=== PATIENT | male | born 1950 | race Caucasian/White ===

== ENCOUNTER 2021-09-10 17:56 | Outpatient (CLI) | payer MEDICARE | END 2021-09-10 17:57 | disposition critical access hospital (66) | LOC: EMS 17:56 | DX: R45.89 Other symptoms and signs involving emotional state (principal); F31.9 Bipolar disorder, unspecified | CPT/HCPCS: A0425; A0429 ==

== ENCOUNTER 2021-09-10 18:12 | Emergency (ER) | payer MEDICARE ==
[2021-09-10 18:23] VITALS: BP 110/61
--- NOTE | 2021-09-10 18:33 | ED Physician Documentation ---
History of Present Illness - Stated complaint Stated Complaint: MHE - Chief complaint Chief Complaint: MHE - Additonal information Additional information: 71-year-old male who has a longstanding history of Parkinson's presents to the emergency department for a mental health evaluation. He reports to this provider that he moved from [place] to [facility] about 2 weeks ago. He has not yet been able to establish with a primary provider. Here in the emergency department he is tearful and does appear intoxicated. 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 He is tearful. He states that he is fearful he is entered the latter stages of Parkinson's. He does report compliance with all of his medications. He states occasionally he has hallucinations (sees people behind him but this has been getting worse). He denies thoughts of harm to himself or others. He expresses difficulty establishing care here [place] the [place]: I have spoken with the patient's at the bedside. She reports that she is very familiar with his routine care. 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 She felt that this was simply an off day but EMS advised her to come to the ER for him to obtain a psychiatric evaluation and/or social work referral. She states that she had not been told that she would not have felt the need to bring him to the hospital. Review of Systems Constitutional: denies: Fever, Chills Eyes: reports: Reviewed and negative Throat: reports: Reviewed and negative Cardiac: reports: Reviewed and negative Respiratory: reports: Reviewed and negative GI: reports: Reviewed and negative : reports: Reviewed and negative Skin: reports: Reviewed and negative Neurologic: reports: Generalized weakness. denies: Numbness, Difficulty s peaking, Headache, Head injury Psychiatric: reports: Depressed, Hallucinations, Anxiety. denies: Suicidal, Homicidal PD PAST MEDICAL HISTORY - Present Medications Home Medications: Ambulatory Orders Medication Instructions Recorded Confirmed Atorvastatin Calcium 40 mg PO 09/10/21 Carbidopa/Levodopa/Entacapone 1 each PO 09/10/21 [Hddipvjli-Xqkrufza-Tdvy 200 mg] Divalproex Sodium [Depakote ER] 500 mg PO 09/10/21 Gabapentin [Neurontin] 100 mg PO TID 09/10/21 09/10/21 Mirabegron [Myrbetriq] 50 mg PO 09/10/21 OLANZapine [Olanzapine] 10 mg PO 09/10/21 Pimavanserin Tartrate [Nuplazid] 34 mg PO 09/10/21 Pramipexole Di-HCl [Mirapex] 1 mg PO 09/10/21 Sildenafil Citrate [Sildenafil] 20 mg PO 09/10/21 Silodosin [Rapaflo] 8 mg PO 09/10/21 lamoTRIgine [Lamictal Xr] 100 mg PO 09/10/21 - Allergies Allergies/Adverse Reactions: Allergies Allergy/AdvReac Type Severity Reaction Status Date / Time No Known Drug Allergies Allergy Verified 09/10/21 18:19 PD ED PE EXPANDED - General General: Alert, Other (Tearful, anxious, glassy eyed) - Cardiac Cardiac: Regular Rate, Radial strong equal, Cap refill < 2 sec. No: Murmur Present - Respiratory Respiratory: Clear to ausultation wesley. No: Distress, Labored - Abdomen Abdomen: Normal Bowel sounds. No: Tender to palpation - Derm Derm: Normal color, Warm and dry. No: Rash - Extremities Extremities: Normal, Deformity - Neuro Neuro: Alert and Oriented X 3, CNII-XII intact - GCS Eye Opening: Spontaneous Motor: Obeys Commands Verbal: Oriented Total: 15 Results - Vitals Vitals: Vital Signs - 24 hr 09/10/21 09/10/21 18:19 18:22 Temperature 36.5 C 36.5 C Heart Rate 70 70 Respiratory 16 16 Rate Blood Pressure 110/61 110/61 O2 Saturation 96 96 Oxygen O2 Source Room air - Labs Labs: Laboratory Tests 09/10/21 09/10/21 09/10/21 18:39 18:39 18:39 WBC 9.0 RBC 4.04 L Hgb 13.1 L Hct 39.5 L MCV 97.8 H MCH 32.4 H MCHC 33.2 RDW 14.0 Plt Count 194 MPV 9.1 Neut # (Auto) 7.1 H Lymph # (Auto) 1.1 L Rapides # (Auto) 0.5 Eos # (Auto) 0.2 Baso # (Auto) 0.0 Absolute Nucleated RBC 0.00 Nucleated RBC % 0.0 Sodium 137 Potassium 4.0 Chloride 102 Carbon Dioxide 25 Anion Gap 10.0 BUN 20 Creatinine 0.8 Estimated GFR (MDRD) 96 Glucose 100 Calcium 9.0 Total Bilirubin 0.6 AST 18 ALT < 10 L Alkaline Phosphatase 80 Total Protein 6.5 L Albumin 3.6 Globulin 2.9 Albumin/Globulin Ratio 1.2 Lipase 24 TSH 2.07 Urine Color Urine Clarity Urine pH Ur Specific [place] Urine Protein Urine Glucose (UA) Urine Ketones Urine Occult Blood Urine Nitrite Urine Bilirubin Urine Urobilinogen Ur Leukocyte Esterase Ur Microscopic Review Urine Culture Comments Salicylates < 6.0 Urine Opiates Screen Ur Oxycodone Screen Urine Methadone Screen Ur Propoxyphene Screen Acetaminophen < 10 L Ur Barbiturates Screen Ur Tricyclics Screen Ur Phencyclidine Scrn Ur Amphetamine Screen U Methamphetamines Scrn U Benzodiazepines Scrn Urine Cocaine Screen U Cannabinoids Screen Ethyl Alcohol < 5.0 09/10/21 20:04 WBC RBC Hgb Hct MCV MCH MCHC RDW Plt Count MPV Neut # (Auto) Lymph # (Auto) Rapides # (Auto) Eos # (Auto) Baso # (Auto) Absolute Nucleated RBC Nucleated RBC % Sodium Potassium Chloride Carbon Dioxide Anion Gap BUN Creatinine Estimated GFR (MDRD) Glucose Calcium Total Bilirubin AST ALT Alkaline Phosphatase Total Protein Albumin Globulin Albumin/Globulin Ratio Lipase TSH Urine Color YELLOW Urine Clarity CLEAR Urine pH 6.0 Ur Specific [place] >=1.030 H Urine Protein NEGATIVE Urine Glucose (UA) NEGATIVE Urine Ketones 15 H Urine Occult Blood NEGATIVE Urine Nitrite NEGATIVE Urine Bilirubin NEGATIVE Urine Urobilinogen 0.2 (NORMAL) Ur Leukocyte Esterase NEGATIVE Ur Microscopic Review NOT INDICATED Urine Culture Comments NOT INDICATED Salicylates Urine Opiates Screen NEGATIVE Ur Oxycodone Screen NEGATIVE Urine Methadone Screen NEGATIVE Ur Propoxyphene Screen NEGATIVE Acetaminophen Ur Barbiturates Screen NEGATIVE Ur Tricyclics Screen NEGATIVE Ur Phencyclidine Scrn NEGATIVE Ur Amphetamine Screen NEGATIVE U Methamphetamines Scrn NEGATIVE U Benzodiazepines Scrn NEGATIVE Urine Cocaine Screen NEGATIVE U Cannabinoids Screen NEGATIVE Ethyl Alcohol PD MEDICAL DECISION MAKING - ED course Complexity details: reviewed results, re-evaluated patient, considered differential, d/w patient, d/w family ED course: 71-year-old male who has a history of Parkinson's as well as Parkinson's related dementia presents to the emergency department for evaluation of depression. He is fearful that he is in the entering the advanced stages of Parkinson. [place] ago [place] and has yet to establish a formal residence and/or a primary care doctor. He did admit to drinking alcohol over the last 24 hours when he had been sober for 21 years. However his drug alcohol screen today was negative. I did spend some time with the at the bedside. She endorses that she feels that this is just a bad day for him and had she not been advised to come to the ER via EMS she would not have brought him in. Screening labs are without acute worrisome findings or electrolyte derangement. A CT of the head is without acute focal findings. I do not feel that the patient is a danger to himself as he easily contracts for safety. I discussed with that is going to be important that he establish with a primary care provider here in [facility] so that he can have his routine meds prescribed as well as obtain to referral to a neuropsychiatrist/neurologist given the dementia and Parkinson's. I did offer tele-psych evaluation, but she declined. She does feel comfortable with his discharge at this time. 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 He is fearful that he is entering the advanced stages of Parkinson's and he may be, but this si for a neurologist to determine. It is going to be important that you call [facility] tomorrow to discuss this ED visit and request referral to a primary care provider as soon as possible. It is going to be important that Hayden get established with a primary doctor as well as a neurologist for longer-term management of his Parkinson's and Parkinson's related behaviors. His screening labs today including his blood count, serum chemistry are all essentially normal. The CT of the head did not show any obvious concerning findings. We do note that the deep brain stimulator wires are in place. If at any point you ever feel that Hayden is unsafe at home, he is threatening to harm himself or anybody else then please do not hesitate to call 911 or return immediately to the ER for repeat evaluation.
[2021-09-10 18:48] LABS: BASOPHILS % (AUTO) 0.3 %; EOSINOPHILS # (AUTO) 0.2 10^3/uL (0.0-0.7); EOSINOPHILS % (AUTO) 2.7 %; HCT - HEMATOCRIT 39.5 % (42.0-52.0); HGB - HEMOGLOBIN 13.1 g/dL (14.0-18.0); LYMPHOCYTES # (AUTO) 1.1 10^3/uL (1.5-3.5); LYMPHOCYTES % (AUTO) 12.5 %; MEAN CORPUSCULAR HEMOGLOBIN 32.4 pg (27.0-31.0); MEAN CORPUSCULAR HGB CONC 33.2 g/dL (32.0-36.0); MEAN CORPUSCULAR VOLUME 97.8 fL (80.0-94.0); MEAN PLATELET VOLUME 9.1 fL (7.4-11.4); MONOCYTES # (AUTO) 0.5 10^3/uL (0.0-1.0); MONOCYTES % (AUTO) 5.2 %; NEUTROPHILS # (AUTO) 7.1 10^3/uL (1.5-6.6); PLT - PLATELET COUNT 194 10^3/uL (130-450); RED BLOOD COUNT 4.04 10^6/uL (4.70-6.10)
[2021-09-10 19:07] LABS: ACETAMINOPHEN < 10 ug/mL (10-30); ALBUMIN 3.6 g/dL (3.2-5.5); ALBUMIN/GLOBULIN RATIO 1.2 (1.0-2.2); ALKALINE PHOSPHATASE 80 IU/L (42-121); ALT ALANINE AMINOTRANSFERASE < 10 IU/L (10-60); AST ASPARTATE AMINOTRANSFERASE 18 IU/L (10-42); BILIRUBIN,TOTAL 0.6 mg/dL (0.2-1.0); BUN - BLOOD UREA NITROGEN 20 mg/dL (6-20); CARBON DIOXIDE - CO2 25 mmol/L (21-32); CHLORIDE 102 mmol/L (101-111); CREATININE 0.8 mg/dL (0.6-1.2); ETOH - ETHANOL < 5.0 mg/dL; GFR - MDRD 96 (>89); GLUCOSE 100 mg/dL (70-100); LIPASE 24 U/L (22-51); SALICYLATE < 6.0 mg/dL; SODIUM 137 mmol/L (135-145); TOTAL PROTEIN 6.5 g/dL (6.7-8.2)
[2021-09-10 20:11] LABS: MUDS CUTOFF CONCENTRATIONS CUTOFF CONC BELOW:
[2021-09-10 20:13] LABS: BILIRUBIN,URINE NEGATIVE (NEGATIVE); GLUCOSE, URINE (UA) NEGATIVE (NEGATIVE); KETONES,URINE (UA) 15 mg/dL (NEGATIVE); LEUKOCYTE ESTERASE, URINE NEGATIVE (NEGATIVE); NITRITE,URINE NEGATIVE (NEGATIVE); OCCULT BLOOD,URINE NEGATIVE (NEGATIVE); PROTEIN,URINE NEGATIVE (NEGATIVE); UROBILINOGEN,URINE 0.2 (NORMAL) E.U./dL (NORMAL)
[2021-09-10 20:17] LABS: CLARITY,URINE CLEAR (CLEAR)
[2021-09-10 20:26] LABS: AMPHETAMINE SCREEN,URINE NEGATIVE (NEGATIVE); BARBITURATE SCREEN,UR NEGATIVE (NEGATIVE); BENZODIAZEPINES SCREEN, URINE NEGATIVE (NEGATIVE); COCAINE SCREEN URINE NEGATIVE (NEGATIVE); METHADONE SCREEN, URINE NEGATIVE (NEGATIVE); METHAMPHETAMINES SCREEN, URINE NEGATIVE (NEGATIVE); OPIATE SCREEN, URINE NEGATIVE (NEGATIVE); OXYCODONE SCREEN, URINE NEGATIVE (NEGATIVE); PROPOXYPHENE SCREEN, URINE NEGATIVE (NEGATIVE); THC CANNABINOID SCREEN, URINE NEGATIVE (NEGATIVE); TRICYCLIC ANTIDEPRESSANT,URINE NEGATIVE (NEGATIVE)
--- NOTE | 2021-09-10 20:41 | CT Report ---
PROCEDURE: HEAD WO INDICATIONS: delusions; hx of parkinsons TECHNIQUE: Noncontrast 4.5 mm thick angled axial sections acquired from the foramen magnum to the vertex. For r adiation dose reduction, the following was used: automated exposure control, adjustment of mA and/or kV according to patient size. COMPARISON: None. FINDINGS: Image quality: Excellent. CSF spaces: Basal cisterns are patent. No extra-axial fluid collections. Ventricles are normal in size and shape. Brain: No stimulators project to the bilateral thalami the right frontal approach. Stimulator leads a re intact. No midline shift. No intracranial masses or hemorrhage. Pritchard-white matter interface is n ormal. There is mild, diffuse cerebral volume loss. There are mild periventricular and subcortical wh ite matter chronic microvascular ischemic changes. Atherosclerotic calcific lesions noted in the inte rnal carotid arteries and the left vertebral artery. Skull and face: Calvarium and visualized facial bones are intact, without suspicious lesions. Sinuses: Visualized sinuses and mastoids are clear. IMPRESSION: No acute intracranial disease process. Reviewed by: Piedad Perez MD, PhD on 09/10/2021 8:39 PM PDT Approved by: Piedad Perez MD, PhD on 09/10/2021 8:39 PM PDT Station ID: [id number]
== END 2021-09-10 21:17 | disposition home or self-care (01) ==
LOC: ED 18:12
DX: G20 Parkinson's disease (principal); F32.89 Other specified depressive episodes
CPT/HCPCS: 36415; 70450; 80053; 80306; 80307; 81003; 83690; 84443; 85025; 99283; 99284; G0480; 80320; 80329; 81001; 87086

== ENCOUNTER 2021-09-29 18:34 | Emergency (ER) | payer MEDICARE ==
--- NOTE | 2021-09-29 20:14 | ED Physician Documentation ---
History of Present Illness - Stated complaint Stated Complaint: MED REFILL/COUGH - Chief complaint Chief Complaint: General - History obtained from History obtained from: Patient, Family - History of Present Illness Timing: Today Pain level max: 0 Pain level now: 0 - Additonal information Additional information: Patient is a 71-year-old male who comes in to the emergency department with a history of Parkinson's dementia. He is accompanied by his . They recently moved here from [place], they state that their medications are stuck in a transport container in [place] and they are unable to obtain any refills. They are also having insurance issues. Requesting refill of his medications. They did bring the bottles with them. Patient also states that he has a small abscess under the left axilla for the past few days. No fevers. No chills. Nothing makes it better or worse Review of Systems Constitutional: denies: Fever, Chills GI: denies: Nausea, Vomiting Skin: denies: Rash Musculoskeletal: denies: Neck pain, Back pain Neurologic: denies: Headache PD PAST MEDICAL HISTORY - Past Medical History Past Medical History: Yes Cardiovascular: High cholesterol Neuro: Dementia, Parkinson's - Past Surgical History Past Surgical History: Yes Neuro: Other - Present Medications Home Medications: Ambulatory Orders Medication Instructions Recorded Confirmed Atorvastatin Calcium 40 mg PO QPM 09/10/21 09/29/21 Carbidopa/Levodopa/Entacapone 1 each PO QID 09/10/21 09/29/21 [Endtwvsas-Jjldqilo-Myyd 200 mg] Divalproex Sodium [Depakote ER] 500 mg PO DAILY 09/10/21 09/29/21 Gabapentin [Neurontin] 100 mg PO TID 09/10/21 09/29/21 Sildenafil Citrate [Sildenafil] 20 mg PO DAILY 09/10/21 09/29/21 Carbidopa/Levodopa ER 50/200 1 tab PO HS #390 tablet 09/29/21 [Sinemet Cr 50 mg/200 mg] Divalproex Sodium [Depakote ER] 1,000 mg PO QPM #60 09/29/21 Mirabegron [Myrbetriq] 50 mg PO DAILY #30 tab 09/29/21 OLANZapine [Olanzapine] 10 mg PO DAILY #30 tab 09/29/21 Pimavanserin Tartrate [Nuplazid] 34 mg PO DAILY #30 cap 09/29/21 Pramipexole Di-HCl [Mirapex] 1 mg PO DAILY #30 tab 09/29/21 Silodosin [Rapaflo] 8 mg PO DAILY #30 cap 09/29/21 clindamycin HCL [Cleocin HCl] 300 mg PO Q6H #40 cap 09/29/21 lamoTRIgine [Lamictal Xr] 100 mg PO DAILY #30 tab 09/29/21 - Allergies Allergies/Adverse Reactions: Allergies Allergy/AdvReac Type Severity Reaction Status Date / Time No Known Drug Allergies Allergy Verified 09/29/21 18:47 - Social History Does the pt smoke?: No Smoking Status: Never smoker Does the pt drink ETOH?: No Does the pt have substance abuse?: No - Immunizations Immunizations are current?: Yes PD ED PE NORMAL - Vitals Vital signs reviewed: Yes - General General: Alert and oriented X 3, No acute distress - HEENT HEENT: Moist mucous membranes - Neck Neck: Supple, no meningeal sign - Cardiac Cardiac: RRR - Respiratory Respiratory: No respiratory distress, Clear bilaterally - Abdomen Abdomen: Soft, Non tender, Non distended - Derm Derm: Warm and dry - Extremities Extremities: Other (0.2 x 0.2 cm abscess to the left axilla. No fluctuance.) - Neuro Neuro: Alert and oriented X 3 - Psych Psych: Normal mood, Normal affect Results - Vitals Vitals: Vital Signs - 24 hr 09/29/21 09/29/21 18:50 20:52 Temperature 36.4 C L 36.5 C Heart Rate 76 75 Respiratory 18 18 Rate Blood Pressure 131/65 H 130/64 O2 Saturation 99 99 Oxygen O2 Source Room air PD MEDICAL DECISION MAKING - ED course Complexity details: considered differential, d/w patient, d/w family ED course: Patient with a very small left axillary abscess. Does not require incision and drainage. Will place on antibiotics for this. Medications will be refilled. Patient will be referred to the primary care clinic on-call for follow-up for the ER this week for further management of his medications until he can establish care with a new primary care provider. Patient and family counseled regarding signs and symptoms for which I believe and urgent re-evaluation would be necessary. Patient with good understanding of and agreement to plan and is comfortable going home at this time This document was made in part using voice recognition software. While efforts are made to proofread this document, sound alike and grammatical errors may occur. Departure - Departure Disposition: 01 Home, Self Care Clinical Impression: Abscess, Dementia associated with Parkinson's disease Condition: Stable Instructions: ED Staph Infec Abx Tx Only Follow-Up: Lucy Dickson PA-C [Physician No Access] - [facility] [Provider Group] - Within 1 week Prescriptions: clindamycin HCL [Cleocin HCl] 300 mg PO Q6H #40 cap Divalproex Sodium [Depakote ER] 1,000 mg PO QPM #60 lamoTRIgine [Lamictal Xr] 100 mg PO DAILY #30 tab Pramipexole Di-HCl [Mirapex] 1 mg PO DAILY #30 tab Mirabegron [Myrbetriq] 50 mg PO DAILY #30 tab Pimavanserin Tartrate [Nuplazid] 34 mg PO DAILY #30 cap OLANZapine [Olanzapine] 10 mg PO DAILY #30 tab Silodosin [Rapaflo] 8 mg PO DAILY #30 cap Carbidopa/Levodopa ER 50/200 [Sinemet Cr 50 mg/200 mg] 1 tab PO HS #390 tablet Comments: Your prescriptions were sent to [facility] in [place]. Please follow-up with your primary care provider for further care. Take all antibiotics until gone. Return if you worsen. Discharge Date/Time: 09/29/21 20:53
[2021-09-29 20:53] VITALS: BP 130/64
== END 2021-09-29 20:53 | disposition home or self-care (01) ==
LOC: ED 18:34
DX: Z76.0 Encounter for issue of repeat prescription (principal); L02.412 Cutaneous abscess of left axilla; G20 Parkinson's disease; F02.80 Dementia in other diseases classified elsewhere, unspecified severity, without behavioral disturbance, psychotic disturbance, mood disturbance, and anxiety
CPT/HCPCS: 99283; 99285

== ENCOUNTER 2021-12-01 21:20 | Observation (INO) | payer MEDICARE ==
[2021-12-02] MEDS ORDERED: LIDOCAINE PATCH 5% TOP ONE (02:28)
[2021-12-02] MEDS ORDERED: ONDANSETRON ODT 4 MG TABLET TL PRN (15:20)
[2021-12-02] MEDS ORDERED: SODIUM CHLORIDE FLUSH 0.9% 10 ML SYRINGE IVP PRN (16:00)
[2021-12-02] MEDS ORDERED: LACTATED RINGERS 1,000 ML ONE (16:28)
[2021-12-02] MEDS: LACTATED RINGERS 1,000 ML IV SCH (18:22)
[2021-12-02 18:34] LABS: MUDS CUTOFF CONCENTRATIONS CUTOFF CONC BELOW:
[2021-12-02 19:00] LABS: VALPROIC ACID (DEPAKOTE) 71.6 ug/mL
[2021-12-02 19:06] LABS: ALBUMIN 3.8 g/dL (3.2-5.5); ALBUMIN/GLOBULIN RATIO 1.3 (1.0-2.2); ALKALINE PHOSPHATASE 90 IU/L (42-121); ALT ALANINE AMINOTRANSFERASE < 10 IU/L (10-60); AST ASPARTATE AMINOTRANSFERASE 18 IU/L (10-42); BILIRUBIN,TOTAL 0.8 mg/dL (0.2-1.0); BUN - BLOOD UREA NITROGEN 21 mg/dL (6-20); CALCIUM 9.6 mg/dL (8.5-10.3); CARBON DIOXIDE - CO2 28 mmol/L (21-32); CHLORIDE 105 mmol/L (101-111); CREATININE 0.9 mg/dL (0.6-1.2); GFR - MDRD 84 (>89); GLUCOSE 86 mg/dL (70-100); LIPASE 24 U/L (22-51); POTASSIUM 3.7 mmol/L (3.5-5.0); SODIUM 142 mmol/L (135-145); TOTAL PROTEIN 6.8 g/dL (6.7-8.2)
[2021-12-02 19:16] LABS: BASOPHILS % (AUTO) 0.5 %; EOSINOPHILS # (AUTO) 0.1 10^3/uL (0.0-0.7); HCT - HEMATOCRIT 39.7 % (42.0-52.0); HGB - HEMOGLOBIN 13.1 g/dL (14.0-18.0); LYMPHOCYTES # (AUTO) 1.4 10^3/uL (1.5-3.5); LYMPHOCYTES % (AUTO) 25.3 %; MEAN CORPUSCULAR HEMOGLOBIN 32.4 pg (27.0-31.0); MEAN CORPUSCULAR VOLUME 98.3 fL (80.0-94.0); MEAN PLATELET VOLUME 10.1 fL (7.4-11.4); MONOCYTES # (AUTO) 0.5 10^3/uL (0.0-1.0); MONOCYTES % (AUTO) 9.1 %; NEUTROPHILS # (AUTO) 3.5 10^3/uL (1.5-6.6); NEUTROPHILS % (AUTO) 62.7 %; PLT - PLATELET COUNT 187 10^3/uL (130-450); RED BLOOD COUNT 4.04 10^6/uL (4.70-6.10); RED CELL DISTRIBUTION WIDTH 14.1 % (12.0-15.0); WHITE BLOOD COUNT 5.5 x10^3/uL (4.8-10.8)
[2021-12-02 19:23] LABS: BILIRUBIN,URINE NEGATIVE (NEGATIVE); GLUCOSE, URINE (UA) NEGATIVE (NEGATIVE); KETONES,URINE (UA) 15 mg/dL (NEGATIVE); LEUKOCYTE ESTERASE, URINE NEGATIVE (NEGATIVE); NITRITE,URINE NEGATIVE (NEGATIVE); OCCULT BLOOD,URINE NEGATIVE (NEGATIVE); PROTEIN,URINE NEGATIVE (NEGATIVE); UROBILINOGEN,URINE 0.2 (NORMAL) E.U./dL (NORMAL)
[2021-12-02 19:24] LABS: CLARITY,URINE CLEAR (CLEAR)
[2021-12-02 19:25] LABS: AMPHETAMINE SCREEN,URINE NEGATIVE (NEGATIVE); BARBITURATE SCREEN,UR NEGATIVE (NEGATIVE); BENZODIAZEPINES SCREEN, URINE NEGATIVE (NEGATIVE); COCAINE SCREEN URINE NEGATIVE (NEGATIVE); METHADONE SCREEN, URINE NEGATIVE (NEGATIVE); METHAMPHETAMINES SCREEN, URINE NEGATIVE (NEGATIVE); OPIATE SCREEN, URINE NEGATIVE (NEGATIVE); OXYCODONE SCREEN, URINE NEGATIVE (NEGATIVE); PROPOXYPHENE SCREEN, URINE NEGATIVE (NEGATIVE); THC CANNABINOID SCREEN, URINE NEGATIVE (NEGATIVE); TRICYCLIC ANTIDEPRESSANT,URINE NEGATIVE (NEGATIVE)
[2021-12-02] MEDS ORDERED: DIVALPROEX ER 250 MG TABLET PO SCH (21:00)
[2021-12-02] MEDS ORDERED: ATORVASTATIN 40 MG TABLET PO SCH (21:00)
--- NOTE | 2021-12-02 21:25 | PHARMACY PROGRESS NOTE ---
- Best Possible Medication History Admit Date and Time: 12/02/21 1430 Processed by: Pharmacy Medication History completed: Yes Patient Interview: Completed Secondary Source(s): Prescription bottles, Caregiver, Pharmacy records, Insurance records As the person ultimately responsible for medication therapy, providers are able to order a medication from an existing home medication list in [facility] via the "Reconcile Routine" prior to Confirmation of that medication by senior administrative support. Such practice is discouraged except when the physician, in their clinical judgment, deems that a medical need exists for a medication without regard to previous use.
[2021-12-02] MEDS: CARBIDOPA/LEVODOPA 25 MG/100 MG TABLET PO SCH (22:01)
[2021-12-02] MEDS: lamoTRIgine 100 MG TABLET PO SCH (22:02)
[2021-12-02] MEDS: CARBIDOPA/LEVODOPA ER 50 MG/200 MG TABLET PO SCH (22:03)
[2021-12-02] MEDS: SODIUM CHLORIDE FLUSH 0.9% 10 ML SYRINGE IVP SCH (22:04)
[2021-12-02] MEDS ORDERED: ATORVASTATIN 40 MG TABLET ONE (22:10)
[2021-12-02] MEDS ORDERED: ASPIRIN EC 81 MG TABLET PO ONE (22:10)
[2021-12-02] MEDS ORDERED: CARBIDOPA/LEVODOPA 25 MG/100 MG TABLET ONE (22:11)
[2021-12-02] MEDS ORDERED: DIVALPROEX ER 250 MG TABLET PO ONE (22:11)
[2021-12-02] MEDS ORDERED: lamoTRIgine 100 MG TABLET PO ONE (22:11)
[2021-12-02] MEDS ORDERED: CARBIDOPA/LEVODOPA ER 50 MG/200 MG TABLET PO ONE (22:15)
[2021-12-03] MEDS: LACTATED RINGERS 1,000 ML IV SCH ×2 (01:38→11:19)
[2021-12-03] MEDS: SODIUM CHLORIDE FLUSH 0.9% 10 ML SYRINGE IVP SCH ×2 (01:39→12:18)
[2021-12-03] MEDS ORDERED: LACTATED RINGERS 1,000 ML ONE ×2 (01:47→11:28)
[2021-12-03] MEDS ORDERED: GABAPENTIN 100 MG CAPSULE PO PRN (07:31)
[2021-12-03] MEDS: CARBIDOPA/LEVODOPA 25 MG/100 MG TABLET PO SCH (08:17)
[2021-12-03] MEDS: PRAMIPEXOLE 0.25 MG TABLET PO SCH ×2 (08:17→13:54)
[2021-12-03] MEDS: CARBIDOPA/LEVODOPA ER 50 MG/200 MG TABLET PO SCH (08:18)
[2021-12-03] MEDS: lamoTRIgine 100 MG TABLET PO SCH (08:18)
[2021-12-03] MEDS ORDERED: CARBIDOPA/LEVODOPA 25 MG/100 MG TABLET ONE (08:21)
[2021-12-03] MEDS ORDERED: GABAPENTIN 100 MG CAPSULE ONE (08:21)
[2021-12-03] MEDS ORDERED: PRAMIPEXOLE 0.25 MG TABLET PO ONE ×2 (08:22→14:04)
[2021-12-03] MEDS ORDERED: lamoTRIgine 100 MG TABLET PO ONE (08:22)
[2021-12-03] MEDS ORDERED: CARBIDOPA/LEVODOPA ER 50 MG/200 MG TABLET PO ONE ×2 (08:22→12:26)
[2021-12-03] MEDS ORDERED: ENOXAPARIN 40 MG/0.4 ML SYRINGE SUBQ ONE (08:23)
[2021-12-03] MEDS ORDERED: ASPIRIN EC 81 MG TABLET PO ONE (08:31)
--- NOTE | 2021-12-03 08:50 | CT Report ---
PROCEDURE: HEAD WO INDICATIONS: AMS TECHNIQUE: Noncontrast 4.5 mm thick angled axial sections acquired from the foramen magnum to the vertex. For r adiation dose reduction, the following was used: automated exposure control, adjustment of mA and/or kV according to patient size. COMPARISON: 09/10/2021 FINDINGS: Deep brain stimulator leads redemonstrated. No acute intracranial hemorrhage, abnormal extra-axial fl uid collection, mass effect, or midline shift. The ventricular system and basilar cisterns are patent . There is mild to moderate cortical volume loss for the past expansion of the ventricles and extra-a xial spaces. Mild to moderate chronic microvascular ischemic changes. No gross orbital abnormality. C lear paranasal sinuses and mastoid air cells. IMPRESSION: No acute intracranial abnormality. Reviewed by: Soy Horta MD on 12/03/2021 8:49 AM PDT Approved by: Soy Horta MD on 12/03/2021 8:49 AM PDT Station ID: [id number]
[2021-12-03] MEDS ORDERED: SOLIFENACIN SUCCINATE 10 MG TABLET PO SCH (09:00)
[2021-12-03] MEDS ORDERED: polyethylene glycoL 3350 17 GM PACKET PO SCH (09:00)
[2021-12-03] MEDS ORDERED: GABAPENTIN 100 MG CAPSULE PO SCH (09:00)
[2021-12-03] MEDS ORDERED: ASPIRIN EC 81 MG TABLET PO SCH (09:00)
[2021-12-03] MEDS ORDERED: ENOXAPARIN 40 MG/0.4 ML SYRINGE SUBQ SCH (09:00)
[2021-12-03 09:25] LABS: CREATININE 0.8 mg/dL (0.6-1.2); POTASSIUM 3.6 mmol/L (3.5-5.0)
[2021-12-03 09:27] LABS: BASOPHILS % (AUTO) 0.7 %; EOSINOPHILS # (AUTO) 0.1 10^3/uL (0.0-0.7); EOSINOPHILS % (AUTO) 2.4 %; HCT - HEMATOCRIT 43.4 % (42.0-52.0); LYMPHOCYTES # (AUTO) 1.3 10^3/uL (1.5-3.5); LYMPHOCYTES % (AUTO) 24.4 %; MEAN CORPUSCULAR HEMOGLOBIN 31.6 pg (27.0-31.0); MEAN CORPUSCULAR HGB CONC 32.3 g/dL (32.0-36.0); MEAN PLATELET VOLUME 9.7 fL (7.4-11.4); MONOCYTES # (AUTO) 0.5 10^3/uL (0.0-1.0); MONOCYTES % (AUTO) 8.4 %; NEUTROPHILS # (AUTO) 3.5 10^3/uL (1.5-6.6); NEUTROPHILS % (AUTO) 63.7 %; PLT - PLATELET COUNT 178 10^3/uL (130-450); RED BLOOD COUNT 4.43 10^6/uL (4.70-6.10); RED CELL DISTRIBUTION WIDTH 14.2 % (12.0-15.0); WHITE BLOOD COUNT 5.5 x10^3/uL (4.8-10.8)
--- NOTE | 2021-12-03 09:29 | CT Report ---
PROCEDURE: CERVICAL SPINE WO INDICATIONS: AMS TECHNIQUE: Noncontrast 3 mm thick sections acquired from the skull base to the T4 level. Sagittal and coronal r eformats were then constructed. For radiation dose reduction, the following was used: automated exp osure control, adjustment of mA and/or kV according to patient size. COMPARISON: None. FINDINGS: Please note that within the PACS the images for this examination are located in the head CT study per formed at the same time. Normal cervical spine vertebral body height and alignment. No suspicious lytic or blastic osseous les ion. No acute fracture identified. The facet joints and intervertebral disc spaces are congruent with out evidence of subluxation or dislocation. There are [id number] multilevel multifactorial dege nerative changes worst at C6-C7. Regional soft tissues demonstrate no acute abnormality in the absenc e of IV contrast. IMPRESSION: No CT evidence of acute traumatic cervical spine injury. Reviewed by: Soy Horta MD on 12/03/2021 9:27 AM PDT Approved by: Soy Horta MD on 12/03/2021 9:27 AM PDT Station ID: [id number]
--- NOTE | 2021-12-03 10:10 | XRAY Report ---
PROCEDURE: Chest 1 View X-Ray INDICATIONS: AMS TECHNIQUE: One view of the chest was acquired. COMPARISON: None FINDINGS: Surgical changes and devices: Neurostimulator projecting over the right chest wall. Lungs and pleura: No pleural effusions or pneumothorax. Lungs are clear. Mediastinum: Mediastinal contours appear normal. Heart size is normal. Bones and chest wall: No suspicious bony lesions. Overlying soft tissues appear unremarkable. IMPRESSION: No acute cardiopulmonary disease process. Reviewed by: Piedad Perez MD, PhD on 12/03/2021 10:09 AM PDT Approved by: Piedad Perez MD, PhD on 12/03/2021 10:09 AM PDT Station ID: [id number]
--- NOTE | 2021-12-03 10:34 | DISCHARGE SUMMARY ---
"Discharge Summary Admit Date: 12/02/21 Discharge Date: 12/03/21 Discharging Provider: Ajay Mejia Primary Care Provider: Aide Moreau Code Status: Do Not Attempt Resuscitation Condition at Discharge: Stable Discharge Disposition: 01 Home, Self Care - DIAGNOSES Admission Diagnoses: Altered mental status Possible syncope Parkinson's disease Bipolar disorder Dementia Discharge Diagnoses with Status of Each Condition: Altered mental status - resolved. Possible syncope - resolved. Parkinson's disease - stable. Bipolar disorder - stable. Dementia - stable. - HPI History of Present Illness: Please see H&P. - CONSULTS | PROCEDURES Consultations: PT, OT, Social Work - HOSPITAL COURSE Hospital Course: The patient was admitted for altered mental status after a fall. There is question of syncope but after further history, it appears he just fell did not have a syncopal episode. He was monitored on telemetry with evidence of arrhythmia. The plan was to obtain an echocardiogram we were unable to do so so this is recommended to be obtained on an outpatient basis. It was felt that his altered mental status was related to polypharmacy and likely too high of a dose of olanzapine. His home medications were resumed except for the olanzapine and he did well throughout the day. The dose had recently been increased to 20 mg so we recommended decreasing this to 10 mg on discharge. He is scheduled to follow-up with a new neurologist in 3 weeks. He was seen by PT/OT and outpatient physical/occupational therapy is recommended. - ALLERGIES Allergies/Adverse Reactions: Allergies Allergy/AdvReac Type Severity Reaction Status Date / Time No Known Drug Allergies Allergy Verified 09/29/21 18:47 - MEDICATIONS Home Medications: Ambulatory Orders Medication Instructions Recorded Confirmed Atorvastatin Calcium 40 mg PO DAILY 09/10/21 12/02/21 Gabapentin [Neurontin] 200 mg PO DAILY 09/10/21 12/02/21 Sildenafil Citrate [Sildenafil] 20 mg PO PRN PRN 09/10/21 12/02/21 Divalproex Sodium [Depakote ER] 1,000 mg PO QPM #60 09/29/21 12/02/21 Mirabegron [Myrbetriq] 50 mg PO DAILY #30 tab 09/29/21 12/02/21 Aspirin EC [Ecotrin] 81 mg PO DAILY 12/02/21 12/02/21 Calcium Carbonate [Calcium] 600 mg PO QPM 12/02/21 12/02/21 Carbidopa/Levodopa 25/100 [Sinemet 1 tab PO 0800,1600,199912/02/21 12/02/21 25 mg/100 mg] Carbidopa/Levodopa ER 50/200 3 tab PO 0800,199912/02/21 12/02/21 [Sinemet Cr 50 mg/200 mg] Carbidopa/Levodopa ER 50/200 4 tab PO 1200,1600 12/02/21 12/02/21 [Sinemet Cr 50 mg/200 mg] Cholecalciferol (Vitamin D3) 50 mcg PO QPM 12/02/21 12/02/21 [Vitamin D3] Gabapentin [Neurontin] 100 mg PO 1200,2100 PRN 12/02/21 12/02/21 Ondansetron Odt [Zofran Odt] 4 mg TL Q6H PRN 12/02/21 12/02/21 Pimavanserin Tartrate [Nuplazid] 34 mg PO QPM 12/02/21 12/02/21 Pramipexole Di-HCl [Mirapex] 1 mg PO QID 12/02/21 12/02/21 Sennosides/Docusate Sodium 1 tab PO QPM 12/02/21 12/02/21 [Docusate Sodium-Sennosides Tab] Silodosin [Rapaflo] 8 mg PO QPM 12/02/21 12/02/21 clonazePAM [KlonoPIN] 1 mg PO QPM 12/02/21 12/02/21 lamoTRIgine [LaMICtal] 100 mg PO BID 12/02/21 12/02/21 OLANZapine [Olanzapine] 10 mg PO QPM #30 tablet 12/03/21 - PHYSICAL EXAM AT DISCHARGE General Appearance: positive: No acute distress, Alert Eyes Bilateral: positive: Normal inspection, Conjunctivae nml ENT: positive: ENT inspection nml Neck: positive: Nml inspection Respiratory: positive: No respiratory distress. negative: Wheezes, Rales Cardiovascular: positive: Regular rate & rhythm, No murmur, Other (Deep brain stimulator present over right chest wall). negative: Tachycardia Abdomen: positive: Non-tender, No distention. negative: Tenderness Skin: positive: Warm, Dry Extremities: positive: No pedal edema Neurologic/Psychiatric: positive: Other (3 out of 5 motor strength in the right lower extremity (chronic). 5 out of 5 motor strength in all of the other extremities). negative: Disoriented to person, Disoriented to place Physical Exam Other/Comments: Vital Signs - 24 hr 12/02/21 12/03/21 12/03/21 23:56 05:33 07:30 Temperature 36.6 C 36.6 C 36.3 C L Heart Rate [ 73 64 59 L Brachial] Heart Rate [ Supine] Respiratory 18 18 16 Rate Blood Pressure 139/67 H 118/65 117/67 [Right Brachial artery] Blood Pressure [Sitting] Blood Pressure [Standing] Blood Pressure [Supine] O2 Saturation 93 96 95 12/03/21 12/03/21 12/03/21 10:30 10:35 11:44 Temperature 36.4 C L Heart Rate [ 83 Brachial] Heart Rate [ 74 74 Supine] Respiratory 20 Rate Blood Pressure 138/78 H [Right Brachial artery] Blood Pressure 127/100 H 127/100 H [Sitting] Blood Pressure 138/78 H 138/78 H [Standing] Blood Pressure 143/73 H 143/73 H [Supine] O2 Saturation 94 12/03/21 12:50 Temperature Heart Rate [ Brachial] Heart Rate [ 74 Supine] Respiratory Rate Blood Pressure [Right Brachial artery] Blood Pressure 127/100 H [Sitting] Blood Pressure 138/78 H [Standing] Blood Pressure 143/73 H [Supine] O2 Saturation Oxygen O2 Source Room air - LABS Result Diagrams: 12/03/21 09:09 12/03/21 09:09 - DIAGNOSTIC IMAGING Diagnostic Imaging Results: Final report reviewed - FOLLOW UP Follow Up: He was encouraged to follow-up with his primary care physician within 1 to 2 weeks and to follow-up with his neurologist as scheduled in 3 weeks. - TIME SPENT Time Spent in Discharge (Minutes): 32"
--- NOTE | 2021-12-03 10:34 | Discharge Plan ---
Discharge Plan Problem Reviewed?: Yes Disposition: Home, Self Care Condition: Stable Prescriptions: OLANZapine [Olanzapine] 10 mg PO QPM #30 tablet Diet: Regular Activity Restrictions: Activity as Tolerated Assistance Devices: Walker Instruction Topics: Parkinson Disease Dc Health Concerns: You were admitted to the hospital after a fall. You are found to be a little confused and we are concerned this may have been due to your multiple medications. I believe the Zyprexa dose is too high for you and this likely contributed to you being more lethargic and weak leading to the fall. Plan of Treatment: The only change to medication is that we recommend you stop Zyprexa 20 mg in the evening and take 10 mg in the evening instead. The 20 mg is likely too high of a dose for you. Please follow-up with your neurologist as scheduled. An ultrasound of your heart can be considered on outpatient basis to make sure there is no valve disease that may have caused you to fall/pass out. Care Goals: The goal is to manage your Parkinson's and bipolar disorder while trying to reduce the side effects of medications. Assessment: The patient and family expressed understanding of the treatment plan. Additional Instructions or Follow Up instructions: Please follow-up with your neurologist as scheduled. Please follow-up with your primary care physician in 1 to 2 weeks. Your primary care physician can refer you to outpatient physical therapy and Occupational Therapy Follow-Up Care: Outpatient Rehab - PT, Outpatient Rehab - OT No Smoking: If you smoke, Please STOP! Call for help. Follow-up with: MANNY BRIZUELA DO [Physician No Access] -
[2021-12-03] MEDS ORDERED: CARBIDOPA/LEVODOPA ER 50 MG/200 MG TABLET PO SCH (12:00)
[2021-12-03 15:17] VITALS: BP 100/65
--- NOTE | 2021-12-03 15:45 | XRAY Report ---
PROCEDURE: Wrist 4 View RT INDICATIONS: FALL TECHNIQUE: 4 views of the wrist were acquired. COMPARISON: None FINDINGS: Bones: Postoperative changes of sideplate and screw fixation of the distal radius. Ulnar styloid frag ment likely from a prior fracture is also seen. There are mild degenerative changes of the wrist. No acute fracture. Soft tissues: No suspicious soft tissue calcifications. IMPRESSION: No acute abnormality of the right wrist. Reviewed by: Marco Paez on 12/03/2021 3:43 PM PDT Approved by: Marco Paez on 12/03/2021 3:43 PM PDT Station ID: [id number]
[2021-12-03] MEDS ORDERED: DIVALPROEX ER 250 MG TABLET PO SCH (21:00)
[2021-12-03] MEDS ORDERED: PIMAVANSERIN TARTRATE 34 MG PO SCH (21:00)
[2021-12-03] MEDS ORDERED: clonazePAM 0.5 MG TABLET PO SCH (21:00)
== END 2021-12-03 15:45 | disposition home or self-care (01) ==
LOC: ED 21:20 → MS3 12-02 14:30
PROVIDERS: ADMIT Internal Medicine; ATTEND Internal Medicine
DX: R41.82 Altered mental status, unspecified (principal); T43.595A Adverse effect of other antipsychotics and neuroleptics, initial encounter; Y92.009 Unspecified place in unspecified non-institutional (private) residence as the place of occurrence of the external cause; G20 Parkinson's disease; F02.80 Dementia in other diseases classified elsewhere, unspecified severity, without behavioral disturbance, psychotic disturbance, mood disturbance, and anxiety; F31.9 Bipolar disorder, unspecified; Z20.822 Contact with and (suspected) exposure to COVID-19; Z91.81 History of falling; Z79.899 Other long term (current) drug therapy; R29.898 Other symptoms and signs involving the musculoskeletal system
CPT/HCPCS: 36415; 70450; 71045; 72125; 73110; 80048; 80053; 80164; 80306; 81003; 82140; 83605; 83690; 84484; 85025; 87635; 93005; 96372; 97162; 97166; 99283; 99285; A9270; G0378; J1650; J7120; 81001; 87086

== ENCOUNTER 2021-12-03 18:58 | Outpatient (CLI) | payer MEDICARE | END 2021-12-03 18:59 | disposition EMS.NT | LOC: EMS 18:58 | DX: R11.2 Nausea with vomiting, unspecified (principal) ==

== ENCOUNTER 2021-12-21 14:17 | Emergency (ER) | payer MEDICARE ==
[2021-12-21 14:28] VITALS: BP 153/73
[2021-12-21] MEDS ORDERED: SULFAMETH/TRIMETH DS 800/160 MG TABLET PO STA (14:34)
[2021-12-21] MEDS ORDERED: LIDOCAINE 1%-EPI 1:100000 20 ML MDV SUBQ STA (14:34)
--- NOTE | 2021-12-21 14:35 | ED Physician Documentation ---
PD HPI WOUND RECHECK - Stated complaint Stated Complaint: RT KNEE ABCESS - Chief complaint Chief Complaint: Wound - Histroy obtained from History obtained from: Patient - Additional information Additional information: 71-year-old gentleman with history of Parkinson's and MRSA presents with a painful wound on his right knee for the last week or so. It is not associated with fevers or chills. Review of Systems Constitutional: denies: Fever, Chills Cardiac: denies: Chest pain / pressure, Palpitations Respiratory: denies: Dyspnea, Cough PD PAST MEDICAL HISTORY - Past Medical History Cardiovascular: High cholesterol Neuro: Dementia, Parkinson's - Past Surgical History Past Surgical History: Yes Neuro: Other - Present Medications Home Medications: Ambulatory Orders Medication Instructions Recorded Confirmed Atorvastatin Calcium 40 mg PO DAILY 09/10/21 12/02/21 Gabapentin [Neurontin] 200 mg PO DAILY 09/10/21 12/02/21 Sildenafil Citrate [Sildenafil] 20 mg PO PRN PRN 09/10/21 12/02/21 Divalproex Sodium [Depakote ER] 1,000 mg PO QPM #60 09/29/21 12/02/21 Mirabegron [Myrbetriq] 50 mg PO DAILY #30 tab 09/29/21 12/02/21 Aspirin EC [Ecotrin] 81 mg PO DAILY 12/02/21 12/02/21 Calcium Carbonate [Calcium] 600 mg PO QPM 12/02/21 12/02/21 Carbidopa/Levodopa 25/100 [Sinemet 1 tab PO 0800,1600,199912/02/21 12/02/21 25 mg/100 mg] Carbidopa/Levodopa ER 50/200 3 tab PO 0800,199912/02/21 12/02/21 [Sinemet Cr 50 mg/200 mg] Carbidopa/Levodopa ER 50/200 4 tab PO 1200,1600 12/02/21 12/02/21 [Sinemet Cr 50 mg/200 mg] Cholecalciferol (Vitamin D3) 50 mcg PO QPM 12/02/21 12/02/21 [Vitamin D3] Gabapentin [Neurontin] 100 mg PO 1200,2100 PRN 12/02/21 12/02/21 Ondansetron Odt [Zofran Odt] 4 mg TL Q6H PRN 12/02/21 12/02/21 Pimavanserin Tartrate [Nuplazid] 34 mg PO QPM 12/02/21 12/02/21 Pramipexole Di-HCl [Mirapex] 1 mg PO QID 12/02/21 12/02/21 Sennosides/Docusate Sodium 1 tab PO QPM 12/02/21 12/02/21 [Docusate Sodium-Sennosides Tab] Silodosin [Rapaflo] 8 mg PO QPM 12/02/21 12/02/21 clonazePAM [KlonoPIN] 1 mg PO QPM 12/02/21 12/02/21 lamoTRIgine [LaMICtal] 100 mg PO BID 12/02/21 12/02/21 OLANZapine [Olanzapine] 10 mg PO QPM #30 tablet 12/03/21 HYDROcod/ACETAM 5/325 [[place] 5/325] 1 - 2 tab PO Q6H PRN #10 tablet 12/21/21 Sulfamethox/Trimeth 800/160 1 each PO BID #14 tablet 12/21/21 [Bactrim Ds 800/160] - Allergies Allergies/Adverse Reactions: Allergies Allergy/AdvReac Type Severity Reaction Status Date / Time No Known Drug Allergies Allergy Verified 12/21/21 14:22 - Social History Does the pt smoke?: No Smoking Status: Never smoker Does the pt drink ETOH?: No Does the pt have substance abuse?: No - Immunizations Immunizations are current?: Yes PD ED PE NORMAL - Vitals Vital signs reviewed: Yes - General General: Alert and oriented X 3, No acute distress - Extremities Extremities: Other (Pointed abscess with surrounding cellulitis superomedial to the right knee with a mild case of noncellulitic/red bursitis anteriorly as well.) - Psych Psych: Normal mood, Normal affect Results - Vitals Vitals: Vital Signs - 24 hr 12/21/21 14:22 Temperature 36.8 C Heart Rate 86 Respiratory 16 Rate Blood Pressure 153/73 H O2 Saturation 96 Oxygen O2 Source Room air Procedures - Abscess I&D (location) R knee Preparation: Confirmed with ultrasound, Lidocaine 1%, With epi Incision: Incised with scalpel, Purulent drainage, Loculations broken, Culture obtained Other: Pt tolerated well, Dressing applied, Antibiotic prescribed Departure - Departure Disposition: 01 Home, Self Care Clinical Impression: Abscess Condition: Good Record reviewed to determine appropriate education?: Yes Instructions: ED Abscess IandD Prescriptions: Sulfamethox/Trimeth 800/160 [Bactrim Ds 800/160] 1 each PO BID #14 tablet HYDROcod/ACETAM 5/325 [[place] 5/325] 1 - 2 tab PO Q6H PRN #10 tablet PRN Reason: Pain Comments: I sent your prescriptions electronically to [facility] in [place]. We are performing a wound culture, the results should be done in 48-72 hours. If antibiotic change is necessary we will call you. Return if worse in the meantime, especially if you develop increased pain, fevers, cannot keep down the medication. Otherwise follow-up with your physician in approximately 2-3 days.
== END 2021-12-21 14:55 | disposition home or self-care (01) ==
LOC: ED 14:17
DX: L02.415 Cutaneous abscess of right lower limb (principal)
CPT/HCPCS: 10060; 87070; 87181; 87205; 99283; A9270

== ENCOUNTER 2023-09-01 10:40 | Outpatient (CLI) | payer MEDICARE ==
[2023-09-01 17:47] LABS: BASOPHILS % (AUTO) 0.6 %; EOSINOPHILS # (AUTO) 0.5 10^3/uL (0.0-0.7); EOSINOPHILS % (AUTO) 9.9 %; HCT - HEMATOCRIT 43.1 % (42.0-52.0); HGB - HEMOGLOBIN 13.6 g/dL (14.0-18.0); LYMPHOCYTES # (AUTO) 1.4 10^3/uL (1.5-3.5); LYMPHOCYTES % (AUTO) 26.8 %; MEAN CORPUSCULAR HEMOGLOBIN 32.2 pg (27.0-31.0); MEAN CORPUSCULAR HGB CONC 31.6 g/dL (32.0-36.0); MEAN CORPUSCULAR VOLUME 102.1 fL (80.0-94.0); MONOCYTES # (AUTO) 0.5 10^3/uL (0.0-1.0); MONOCYTES % (AUTO) 8.9 %; NEUTROPHILS # (AUTO) 2.9 10^3/uL (1.5-6.6); NEUTROPHILS % (AUTO) 53.4 %; PLT - PLATELET COUNT 195 10^3/uL (130-450); RED BLOOD COUNT 4.22 10^6/uL (4.70-6.10); RED CELL DISTRIBUTION WIDTH 13.9 % (12.0-15.0); WHITE BLOOD COUNT 5.4 x10^3/uL (4.8-10.8)
[2023-09-01 18:17] LABS: LITHIUM 0.43 mmol/L
[2023-09-01 18:19] LABS: THYROID STIMULATING HORMONE 2.07 uIU/mL (0.34-5.60)
[2023-09-01 18:21] LABS: ALBUMIN/GLOBULIN RATIO 1.7 (1.0-2.2); BILIRUBIN,TOTAL 0.5 mg/dL (0.2-1.0); CALCIUM 9.9 mg/dL (8.5-10.3); CREATININE 0.7 mg/dL (0.6-1.3); MAGNESIUM 2.1 mg/dL (1.7-2.3); POTASSIUM 4.4 mmol/L (3.5-4.5); TOTAL PROTEIN 6.3 g/dL (6.4-8.9)
== END 2023-09-01 10:41 | disposition home or self-care (01) ==
LOC: LAB.N 10:40
PROVIDERS: ATTEND Internal Medicine
DX: F31.9 Bipolar disorder, unspecified (principal); Z51.81 Encounter for therapeutic drug level monitoring; G47.62 Sleep related leg cramps
CPT/HCPCS: 36415; 80053; 80178; 83735; 84443; 85025

== ENCOUNTER 2023-10-13 08:46 | Outpatient (CLI) | payer MEDICARE ==
[2023-10-13 12:14] LABS: BASOPHILS # (AUTO) 0.1 10^3/uL (0.0-0.1); BASOPHILS % (AUTO) 0.8 %; EOSINOPHILS # (AUTO) 0.3 10^3/uL (0.0-0.7); EOSINOPHILS % (AUTO) 5.1 %; HCT - HEMATOCRIT 41.1 % (42.0-52.0); HGB - HEMOGLOBIN 13.5 g/dL (14.0-18.0); LYMPHOCYTES # (AUTO) 1.7 10^3/uL (1.5-3.5); LYMPHOCYTES % (AUTO) 26.2 %; MEAN CORPUSCULAR HEMOGLOBIN 33.2 pg (27.0-31.0); MEAN CORPUSCULAR HGB CONC 32.8 g/dL (32.0-36.0); MEAN PLATELET VOLUME 9.9 fL (7.4-11.4); MONOCYTES # (AUTO) 0.6 10^3/uL (0.0-1.0); MONOCYTES % (AUTO) 8.9 %; NEUTROPHILS # (AUTO) 3.8 10^3/uL (1.5-6.6); NEUTROPHILS % (AUTO) 58.8 %; PLT - PLATELET COUNT 220 10^3/uL (130-450); RED BLOOD COUNT 4.07 10^6/uL (4.70-6.10); RED CELL DISTRIBUTION WIDTH 13.6 % (12.0-15.0); WHITE BLOOD COUNT 6.5 x10^3/uL (4.8-10.8)
[2023-10-13 12:39] LABS: THYROID STIMULATING HORMONE 3.12 uIU/mL (0.34-5.60)
[2023-10-13 12:43] LABS: ALBUMIN 3.9 g/dL (3.2-5.5); ALBUMIN/GLOBULIN RATIO 1.6 (1.0-2.2); BILIRUBIN,TOTAL 0.4 mg/dL (0.2-1.0); CALCIUM 9.8 mg/dL (8.5-10.3); CREATININE 0.7 mg/dL (0.6-1.3); TOTAL PROTEIN 6.3 g/dL (6.4-8.9)
[2023-10-13 12:49] LABS: LITHIUM 0.41 mmol/L
== END 2023-10-13 08:47 | disposition home or self-care (01) ==
LOC: LAB.N 08:46
PROVIDERS: ATTEND Psychiatry & Neurology Psychiatry
DX: F31.9 Bipolar disorder, unspecified (principal); Z51.81 Encounter for therapeutic drug level monitoring; G47.62 Sleep related leg cramps
CPT/HCPCS: 36415; 80053; 80178; 83735; 84443; 85025

== ENCOUNTER 2024-07-26 00:01 | Inpatient (IN) ==
[2024-07-26] MEDS: ACETAMINOPHEN 325 MG TABLET PO STA (00:30)
[2024-07-26 00:31] LABS: BASOPHILS % (AUTO) 0.2 %; EOSINOPHILS % (AUTO) 0.2 %; HCT - HEMATOCRIT 39.7 % (42.0-52.0); HGB - HEMOGLOBIN 13.4 g/dL (14.0-18.0); LYMPHOCYTES # (AUTO) 0.6 10^3/uL (1.5-3.5); LYMPHOCYTES % (AUTO) 10.3 %; MEAN CORPUSCULAR HEMOGLOBIN 33.3 pg (27.0-31.0); MEAN CORPUSCULAR HGB CONC 33.8 g/dL (32.0-36.0); MEAN CORPUSCULAR VOLUME 98.5 fL (80.0-94.0); MEAN PLATELET VOLUME 9.2 fL (7.4-11.4); MONOCYTES # (AUTO) 0.8 10^3/uL (0.0-1.0); MONOCYTES % (AUTO) 13.6 %; NEUTROPHILS # (AUTO) 4.6 10^3/uL (1.5-6.6); NEUTROPHILS % (AUTO) 75.5 %; PLT - PLATELET COUNT 174 10^3/uL (130-450); RED BLOOD COUNT 4.03 10^6/uL (4.70-6.10); RED CELL DISTRIBUTION WIDTH 13.2 % (12.0-15.0); WHITE BLOOD COUNT 6.1 x10^3/uL (4.8-10.8)
[2024-07-26 00:46] LABS: ALBUMIN 4.1 g/dL (3.2-5.5); BILIRUBIN,TOTAL 0.4 mg/dL (0.2-1.0); CALCIUM 9.7 mg/dL (8.5-10.3); POTASSIUM 4.3 mmol/L (3.5-4.5)
[2024-07-26] MEDS: SODIUM CHLORIDE 0.9% 500 ML IV ONE (00:48)
--- NOTE | 2024-07-26 00:52 | XRAY Report ---
PROCEDURE: XR Chest 2V INDICATIONS: cough TECHNIQUE: 2 views of the chest were acquired. COMPARISON: Chest radiograph 12/01/2021. FINDINGS: Surgical changes and devices: Right chest wall neurostimulator with leads projecting caudally. Lungs and pleura: No pleural effusions or pneumothorax. Left lung base hazy opacity. Mediastinum: Mediastinal contours appear normal. Heart size is normal. Bones and chest wall: No suspicious bony lesions. Overlying soft tissues appear unremarkable. IMPRESSION: Left lung base hazy opacity. Finding may represent atelectasis, aspiration or pneumonia in appropriat e clinical setting. Reviewed by: Kate Subramanian MD, PhD on 07/26/2024 12:51 AM PST Approved by: Kate Subramanian MD, PhD on 07/26/2024 12:51 AM [id number] Station ID: [id number]
[2024-07-26] MEDS ORDERED: cefTRIAXone 2 GM VIAL ONE (01:31)
[2024-07-26] MEDS: ONDANSETRON 4 MG/2 ML VIAL IVP STA (01:39)
[2024-07-26] MEDS: cefTRIAXone 2 GM in SODIUM CHLORIDE 0.9% MINIBAG 100 ML IV STA (01:39)
[2024-07-26 02:04] LABS: B. PARAPERTUSSIS- RESP PCR PAN NOT DETECTED; B. PERTUSSIS- RESP PCR PANEL NOT DETECTED; C. PNEUMONIAE- RESP PCR PANEL NOT DETECTED; CORONAVIRUS 229E-RESP PCR NOT DETECTED; CORONAVIRUS HKU1-RESP PCR NOT DETECTED; CORONAVIRUS NL63-RESP PCR NOT DETECTED; CORONAVIRUS OC43-RESP PCR NOT DETECTED; HUMAN METAPNEUMOVIRUS NOT DETECTED; INFLUENZA A- RESP PCR PANEL NOT DETECTED; INFLUENZA B - RESP PCR PANEL NOT DETECTED; M. PNEUMONIAE- RESP PCR PANEL NOT DETECTED; PARAINFLUENZA VIRUS 1 NOT DETECTED; PARAINFLUENZA VIRUS 2 NOT DETECTED; PARAINFLUENZA VIRUS 4 NOT DETECTED; RHINOVIRUS/ENTEROVIRUS NOT DETECTED; RSV- RESP PCR PANEL DETECTED; SARS-CoV-2 -RESP PCR PANEL NOT DETECTED
[2024-07-26] MEDS: AZITHROMYCIN INJ 500 MG in SODIUM CHLORIDE 0.9% 250 ML IV STA (02:16)
--- NOTE | 2024-07-26 02:37 | ED Physician Documentation ---
History of Present Illness Stated complaint Stated Complaint: GEN WEAKNESS Chief complaint Chief Complaint: General History obtained from History obtained from: Patient Additonal information Additional information: 74yM with pmh parkinsons p/w cough X 3 days with headche, nausea, chills and generalized weakness. denies soa, cp. states he has been behaving tired and "out of it" Meds/Allgy Home Medications Ambulatory Orders Medication Instructions Recorded Confirmed atorvastatin 40 mg tablet 40 mg PO DAILY 09/10/21 05/15/24 gabapentin 100 mg capsule 200 mg PO DAILY 09/10/21 05/15/24 divalproex 500 mg tablet,extended 1,000 mg (2 x 500 mg) PO QPM ##60 09/29/21 05/15/24 release 24 hr (Depakote ER) mirabegron 50 mg tablet,extended 50 mg PO DAILY #30 tabs 09/29/21 05/15/24 release 24 hr (Myrbetriq) aspirin 81 mg tablet,delayed 81 mg PO DAILY 12/02/21 05/15/24 release calcium carbonate 600 mg PO QPM 12/02/21 05/15/24 carbidopa 25 mg-levodopa 100 mg 1 tab PO 0800,1600,199912/02/21 05/15/24 tablet carbidopa ER 50 mg-levodopa 200 mg 3 tab PO 0800,199912/02/21 05/15/24 tablet,extended release carbidopa ER 50 mg-levodopa 200 mg 4 tab PO 1200,1600 12/02/21 05/15/24 tablet,extended release cholecalciferol (vitamin D3) 50 50 mcg PO QPM 12/02/21 05/15/24 mcg (2,000 unit) capsule clonazepam 0.5 mg tablet 1 mg PO QPM 12/02/21 05/15/24 gabapentin 100 mg capsule 100 mg PO 1200,2100 PRN Pain 12/02/21 05/15/24 lamotrigine 100 mg tablet 100 mg PO BID 12/02/21 05/15/24 pimavanserin 34 mg capsule 34 mg PO QPM 12/02/21 05/15/24 (Nuplazid) pramipexole 1 mg tablet (Mirapex) 1 mg PO QID 12/02/21 05/15/24 sennosides 8.6 mg-docusate sodium 1 tab PO QPM 12/02/21 05/15/24 50 mg tablet silodosin 8 mg capsule (Rapaflo) 8 mg PO QPM 12/02/21 05/15/24 olanzapine 10 mg tablet 10 mg PO QPM #30 tabs 12/03/21 05/15/24 oxycodone-acetaminophen 5 mg-325 1 - 2 tab PO Q6H PRN pain #14 tabs 05/15/24 mg tablet (Percocet) prednisone 20 mg tablet See Rx Instructions .Route 05/15/24 .COMPLEX #19 tabs Allergies Allergies Allergy/AdvReac Type Severity Reaction Status Date / Time No Known Drug Allergies Allergy Verified 07/26/24 02:11 PFSH Medical History Medical History (Updated 07/26/24 @ 04:59 by Dana Cardenas MD) Parkinson disease Surgical History Surgical History (Updated 07/26/24 @ 00:18 by Maryuri Stapleton RN) S/P deep brain stimulator placement Social History Social History (Updated 07/26/24 @ 00:18 by Maryuri Stapleton, RN) Smoking Status: Former smoker Do you vape?: No Relationship: Home Mobility Equipment: Cane Do you feel safe in your home environment?: No Suffered physical, verbal, emotional, or financial abuse?: No History of Abuse: No Exam Constitutional normal general appearance and no apparent distress elderly appearing HENMT head/scalp atraumatic Eyes PERRL and EOMs intact bilaterally Respiratory normal respiratory effort diminished breath sounds LLL Cardiovascular normal heart rate noted and regular rhythm noted Gastrointestinal abdomen normal to inspection, abdomen soft to palpation and nontender to palpation Neurology GCS 15 Psychiatry oriented x3 Skin skin color normal Results Vitals Vitals: Vital Signs - 24 hr 07/26/24 00:05 07/26/24 00:20 07/26/24 00:30 Temperature 37.9 C Temperature Source Oral Pulse Rate 92 Respiratory Rate 20 Blood Pressure 124/65 O2 Saturation 92 Oxygen Delivery Method Nasal Cannula O2 Source Room air Oxygen Flow Rate If not protocol: Oxygen Flow, liters/minute 2 Pain Intensity 9 9 07/26/24 00:42 07/26/24 00:50 07/26/24 01:12 Temperature Temperature Source Pulse Rate 92 86 Respiratory Rate 20 20 Blood Pressure 118/65 110/62 O2 Saturation 90 L 97 97 Oxygen Delivery Method O2 Source Room air Nasal cannula Nasal cannula Oxygen Flow Rate If not protocol: Oxygen Flow, liters/minute 2 2 Pain Intensity 07/26/24 01:44 07/26/24 01:44 07/26/24 02:12 Temperature 37.6 C Temperature Source Temporal Artery Scan Pulse Rate 85 86 Respiratory Rate 22 22 Blood Pressure 110/62 129/64 O2 Saturation 96 95 Oxygen Delivery Method Nasal Cannula O2 Source Room air Nasal cannula Oxygen Flow Rate 2 If not protocol: Oxygen Flow, liters/minute 2 2 Pain Intensity 0 07/26/24 02:58 07/26/24 04:03 07/26/24 04:56 Temperature 37.1 C 37.2 C Temperature Source Oral Oral Pulse Rate 87 81 81 Respiratory Rate 20 21 20 Blood Pressure 121/62 108/66 112/66 O2 Saturation 95 94 91 L Oxygen Delivery Method O2 Source Nasal cannula Room air Room air Oxygen Flow Rate If not protocol: Oxygen Flow, liters/minute 2 Pain Intensity 0 07/26/24 05:19 Temperature Temperature Source Pulse Rate Respiratory Rate Blood Pressure O2 Saturation 95 Oxygen Delivery Method O2 Source Nasal cannula Oxygen Flow Rate If not protocol: Oxygen Flow, liters/minute 2 Pain Intensity Oxygen O2 Source Nasal cannula Oxygen Flow Rate 2 Labs Labs: Laboratory Tests 07/26/24 07/26/24 07/26/24 00:26 00:47 04:50 WBC 6.1 RBC 4.03 L Hgb 13.4 L Hct 39.7 L MCV 98.5 H MCH 33.3 H MCHC 33.8 RDW 13.2 Plt Count 174 MPV 9.2 Neut # (Auto) 4.6 Lymph # (Auto) 0.6 L [place] # (Auto) 0.8 Eos # (Auto) 0.0 Baso # (Auto) 0.0 Absolute Nucleated RBC 0.00 Nucleated RBC % 0.0 Sodium 137 Potassium 4.3 Chloride 103 Carbon Dioxide 26 Anion Gap 8.0 BUN 18 Creatinine 1.0 Estimated GFR (MDRD) 73 L Glucose 102 Calcium 9.7 Total Bilirubin 0.4 AST 26 ALT 7 L Alkaline Phosphatase 53 Total Protein 5.6 L Albumin 4.1 Globulin 1.5 L Albumin/Globulin Ratio 2.7 H Lipase 16 Urine Color YELLOW Urine Clarity CLEAR Urine pH 7.5 Ur Specific [place] 1.015 Urine Protein NEGATIVE Urine Glucose (UA) NEGATIVE Urine Ketones TRACE Urine Occult Blood NEGATIVE Urine Nitrite NEGATIVE Urine Bilirubin NEGATIVE Urine Urobilinogen 0.2 (NORMAL) Ur Leukocyte Esterase NEGATIVE Ur Microscopic Review NOT INDICATED Urine Culture Comments NOT INDICATED Nasal Adenovirus (PCR) NOT DETECTED Nasal B. parapertussis DNA (PCR) NOT DETECTED Nasal Coronavir 229E PCR NOT DETECTED Nasal Coronavir HKU1 PCR NOT DETECTED Nasal Coronavir NL63 PCR NOT DETECTED Nasal Coronavir OC43 PCR NOT DETECTED Nasal Enterovir/Rhinovir PCR NOT DETECTED Nasal Influenza B PCR NOT DETECTED Nasal Influenza A PCR NOT DETECTED Nasal Parainfluen 1 PCR NOT DETECTED Nasal Parainfluen 2 PCR NOT DETECTED Nasal Parainfluen 3 PCR NOT DETECTED Nasal Parainfluen 4 PCR NOT DETECTED Nasal RSV (PCR) DETECTED A Nasal B.pertussis DNA PCR NOT DETECTED Nasal C.pneumoniae (PCR) NOT DETECTED Misael Human Metapneumo PCR NOT DETECTED Nasal M.pneumoniae (PCR) NOT DETECTED Nasal SARS-CoV-2 (PCR) NOT DETECTED 07/26/24 05:17 WBC 4.9 RBC 4.04 L Hgb 13.4 L Hct 40.2 L MCV 99.5 H MCH 33.2 H MCHC 33.3 RDW 13.2 Plt Count 172 MPV 9.2 Neut # (Auto) 3.1 Lymph # (Auto) 1.0 L [place] # (Auto) 0.8 Eos # (Auto) 0.0 Baso # (Auto) 0.0 Absolute Nucleated RBC 0.00 Nucleated RBC % 0.0 Sodium 137 Potassium 4.1 Chloride 106 Carbon Dioxide 26 Anion Gap 5.0 L BUN 15 Creatinine 1.0 Estimated GFR (MDRD) 73 L Glucose 107 H Calcium 9.2 Total Bilirubin AST ALT Alkaline Phosphatase Total Protein Albumin Globulin Albumin/Globulin Ratio Lipase Urine Color Urine Clarity Urine pH Ur Specific [place] Urine Protein Urine Glucose (UA) Urine Ketones Urine Occult Blood Urine Nitrite Urine Bilirubin Urine Urobilinogen Ur Leukocyte Esterase Ur Microscopic Review Urine Culture Comments Nasal Adenovirus (PCR) Nasal B. parapertussis DNA (PCR) Nasal Coronavir 229E PCR Nasal Coronavir HKU1 PCR Nasal Coronavir NL63 PCR Nasal Coronavir OC43 PCR Nasal Enterovir/Rhinovir PCR Nasal Influenza B PCR Nasal Influenza A PCR Nasal Parainfluen 1 PCR Nasal Parainfluen 2 PCR Nasal Parainfluen 3 PCR Nasal Parainfluen 4 PCR Nasal RSV (PCR) Nasal B.pertussis DNA PCR Nasal C.pneumoniae (PCR) Misael Human Metapneumo PCR Nasal M.pneumoniae (PCR) Nasal SARS-CoV-2 (PCR) PD Medical Decision Making ED course ED course: 74yM presents with 3 days of cough and malaise, found to have RSV on nasal swab as well as left lower lobe pneumonia on chest xray. possible aspiration event a few days previous per amberly chow. rocephin/azithro ordered for community aqcuired pneumonia. He did have o2 sat drop to 90-91 RA per staffing branch manager and is now on 2L nasal cannula. is uncomfortable taking him home since he has been so weak and unable to stand at times. overnight his o2 sat was consistently 90 to 91% RA, improving to 95% on 2L nasl cannula. bed became available overnight and patient was admitted to telehealth Dr Coronado at 6am. Discharge Plan Discharge Patient Disposition: 66 [facility] DC/Xfer Condition: Fair Clinical Impression: RSV infection, Pneumonia, Hypoxia, Weakness Prescriptions: No Action gabapentin 100 MG capsule 200 mg PO DAILY atorvastatin 40 MG tablet 40 mg PO DAILY divalproex [Depakote ER] 500 MG tablet extended release 24 hr 1,000 mg PO QPM Qty: 60 0RF mirabegron [Myrbetriq] 50 MG tablet extended release 24 hr 50 mg PO DAILY Qty: 30 0RF carbidopa-levodopa 1 TAB tablet extended release 4 tab PO 1200,1600 Patient Comments: take 3 tablet by mouth AT 8 AM 4 tablets by mouth AT NOON 3 table... (REFER TO PRESCRIPTION NOTES). gabapentin 100 MG capsule 100 mg PO 1200,2100 PRN (Reason: Pain) carbidopa-levodopa 1 TAB tablet 1 tab PO 0800,1600,2000 lamotrigine 100 MG tablet 100 mg PO BID Patient Comments: take 1 tablet by mouth once daily pramipexole [Mirapex] 1 MG tablet 1 mg PO QID carbidopa-levodopa 1 TAB tablet extended release 3 tab PO 0800,2000 silodosin [Rapaflo] 8 MG capsule 8 mg PO QPM Nuplazid 34 MG capsule 34 mg PO QPM clonazepam 0.5 MG tablet 1 mg PO QPM sennosides-docusate sodium 1 EACH tablet 1 tab PO QPM aspirin 81 MG tablet,delayed release (DR/EC) 81 mg PO DAILY calcium carbonate 600 MG tablet 600 mg PO QPM cholecalciferol (vitamin D3) 50 MCG capsule 50 mcg PO QPM olanzapine 10 MG tablet 10 mg PO QPM Qty: 30 0RF prednisone 20 mg tablet See Rx Instructions .ROUTE .COMPLEX Qty: 19 0RF Rx Instructions: 3 tabs po daily x 3 days, then 2 tabs po daily x 3 days then 1 tab po daily x 4 days oxycodone-acetaminophen [Percocet] 5-325 mg tablet 1 - 2 tab PO Q6H MDD 6 PRN (Reason: pain) Qty: 14 0RF Print Language: Albanian Stand Alone Forms: PCP List
[2024-07-26] MEDS ORDERED: ACETAMINOPHEN 500 MG TABLET PO PRN (04:59)
[2024-07-26] MEDS ORDERED: ONDANSETRON 4 MG/2 ML VIAL IVP PRN ×2 (04:59→05:58)
[2024-07-26 05:05] LABS: BILIRUBIN,URINE NEGATIVE (NEGATIVE); CLARITY,URINE CLEAR (CLEAR); GLUCOSE, URINE (UA) NEGATIVE (NEGATIVE); KETONES,URINE (UA) TRACE mg/dL (NEGATIVE); LEUKOCYTE ESTERASE, URINE NEGATIVE (NEGATIVE); NITRITE,URINE NEGATIVE (NEGATIVE); OCCULT BLOOD,URINE NEGATIVE (NEGATIVE); PH,URINE 7.5 PH (5.0-7.5); PROTEIN,URINE NEGATIVE (NEGATIVE); UROBILINOGEN,URINE 0.2 (NORMAL) E.U./dL (NORMAL)
[2024-07-26 05:22] LABS: EOSINOPHILS % (AUTO) 0.4 %; HCT - HEMATOCRIT 40.2 % (42.0-52.0); HGB - HEMOGLOBIN 13.4 g/dL (14.0-18.0); LYMPHOCYTES % (AUTO) 20.8 %; MEAN CORPUSCULAR HEMOGLOBIN 33.2 pg (27.0-31.0); MEAN CORPUSCULAR HGB CONC 33.3 g/dL (32.0-36.0); MEAN CORPUSCULAR VOLUME 99.5 fL (80.0-94.0); MEAN PLATELET VOLUME 9.2 fL (7.4-11.4); MONOCYTES # (AUTO) 0.8 10^3/uL (0.0-1.0); MONOCYTES % (AUTO) 15.4 %; NEUTROPHILS # (AUTO) 3.1 10^3/uL (1.5-6.6); PLT - PLATELET COUNT 172 10^3/uL (130-450); RED BLOOD COUNT 4.04 10^6/uL (4.70-6.10); RED CELL DISTRIBUTION WIDTH 13.2 % (12.0-15.0); WHITE BLOOD COUNT 4.9 x10^3/uL (4.8-10.8)
[2024-07-26 05:36] LABS: CALCIUM 9.2 mg/dL (8.5-10.3); POTASSIUM 4.1 mmol/L (3.5-4.5)
[2024-07-26] MEDS ORDERED: BENZOCAINE/MENTHOL LOZENGE MM PRN ×2 (05:58→07:58)
[2024-07-26] MEDS ORDERED: BENZONATATE 100 MG CAPSULE PO PRN (05:58)
[2024-07-26] MEDS ORDERED: ALBUTEROL 1 PUFF INH PRN (05:58)
[2024-07-26] MEDS ORDERED: MELATONIN 3 MG TABLET PO PRN (05:58)
[2024-07-26] MEDS ORDERED: oxyCODONE 5 MG TABLET PO PRN (05:58)
[2024-07-26 06:32] LABS: CHOL/HDL RATIO 2.5 (<5.0); CHOLESTEROL 149 mg/dL; HDL CHOLESTEROL 59 mg/dL; LDL CHOLESTEROL,CALCULATED 79 mg/dL; LDL/HDL RATIO 1.3 (<3.6); TRIGLYCERIDES 54 mg/dL; VALPROIC ACID (DEPAKOTE) 72.7 ug/mL; VLDL CHOLESTEROL 11 mg/dL
[2024-07-26] MEDS: PANTOPRAZOLE 40 MG TABLET PO SCH (06:50)
[2024-07-26] MEDS ORDERED: PANTOPRAZOLE 40 MG TABLET PO SCH (07:00)
[2024-07-26 07:03] LABS: THYROID STIMULATING HORMONE 1.35 uIU/mL (0.34-5.60)
[2024-07-26] MEDS: guaiFENesin 600 MG TABLET PO SCH (08:22)
[2024-07-26] MEDS: AZITHROMYCIN INJ 500 MG in SODIUM CHLORIDE 0.9% 250 ML IV SCH (08:22)
[2024-07-26] MEDS: PRAMIPEXOLE 0.25 MG TABLET PO SCH (08:22)
[2024-07-26] MEDS: lamoTRIgine 100 MG TABLET PO SCH (08:22)
[2024-07-26] MEDS: LACTOBACILLUS RHAMNOSUS GG CAPSULE PO SCH (08:22)
[2024-07-26] MEDS: ATORVASTATIN 40 MG TABLET PO SCH (08:22)
[2024-07-26] MEDS: ASCORBIC ACID 500 MG TABLET PO SCH (08:22)
[2024-07-26] MEDS: MULTIVITAMIN W/MINERALS TABLET PO SCH (08:22)
[2024-07-26] MEDS: ASPIRIN EC 81 MG TABLET PO SCH (08:22)
[2024-07-26] MEDS: SOLIFENACIN SUCCINATE 5 MG TABLET PO SCH (08:23)
[2024-07-26] MEDS: ACETAMINOPHEN 325 MG TABLET PO PRN (08:23)
[2024-07-26] MEDS: CARBIDOPA/LEVODOPA 25 MG/100 MG TABLET PO SCH (08:27)
[2024-07-26] MEDS: CARBIDOPA/LEVODOPA ER 50 MG/200 MG TABLET PO SCH ×3 (08:27→19:54)
[2024-07-26] MEDS ORDERED: AZITHROMYCIN INJ 500 MG in SODIUM CHLORIDE 0.9% 250 ML IV SCH (09:00)
[2024-07-26] MEDS ORDERED: cefTRIAXone 1 GM in SODIUM CHLORIDE 0.9% MINIBAG 100 ML IV SCH (09:00)
--- NOTE | 2024-07-26 09:17 | HISTORY & PHYSICAL EXAMINATION ---
Chief Complaint Chief Complaint Chief Complaint: Cough, shortness of breath, weakness History of Present Illness Admitted From Admitted From:: Home History Obtained From Records Reviewed: Yes History obtained from: Patient, patient's at bedside Exam Limitations: None History of Present Illness HPI Comment/Other: Patient is a 74-year-old male with a history of Parkinson's disease, dementia, who presented for 3 to 4 days of worsening cough, fevers, chills. His is at bedside and corroborates his history. He states that he has been feeling progressively worse. About 3 days ago, he was eating some granola, and may have aspirated which led to some coughing. This coughing worsened. has not had any symptoms. He has also been having some fevers and chills at home. He does not usually use oxygen at home. He has no history of lung disease including COPD or asthma. In the ER, he was desaturating down to 90%, and required 2 L of oxygen. He did spike a fever this morning of 100.8. His heart rate is between 80-90, and his blood pressure is normotensive. They did a respiratory viral panel which was positive for RSV. Chest x-ray shows a left lower lobe lung opacity. He was admitted for further management. Meds/Allgy Home Medications Ambulatory Orders Medication Instructions Recorded Confirmed atorvastatin 40 mg tablet 40 mg PO DAILY 09/10/21 07/26/24 divalproex 500 mg tablet,extended 1,000 mg (2 x 500 mg) PO QPM ##60 09/29/21 07/26/24 release 24 hr (Depakote ER) mirabegron 50 mg tablet,extended 50 mg PO DAILY #30 tabs 09/29/21 07/26/24 release 24 hr (Myrbetriq) aspirin 81 mg tablet,delayed 81 mg PO DAILY 12/02/21 07/26/24 release calcium carbonate 600 mg PO QPM 12/02/21 07/26/24 carbidopa ER 50 mg-levodopa 200 mg 3 tab PO 0800,2000 12/02/21 05/15/24 tablet,extended release carbidopa ER 50 mg-levodopa 200 mg 4 tab PO 1200,1600 12/02/21 05/15/24 tablet,extended release cholecalciferol (vitamin D3) 50 50 mcg PO QPM 06/08/22 01/30/25 mcg (2,000 unit) capsule gabapentin 100 mg capsule 100 mg PO 1200,2100 PRN Pain 12/02/21 07/26/24 lamotrigine 100 mg tablet 100 mg PO BID 12/02/21 07/26/24 pimavanserin 34 mg capsule 34 mg PO QPM 12/02/21 07/26/24 (Nuplazid) sennosides 8.6 mg-docusate sodium 1 tab PO QPM 12/02/21 07/26/24 50 mg tablet olanzapine 10 mg tablet 10 mg PO QPM #30 tabs 12/03/21 07/26/24 oxycodone-acetaminophen 5 mg-325 1 - 2 tab PO Q6H PRN pain #14 tabs 05/15/24 07/26/24 mg tablet (Percocet) lithium carbonate 150 mg capsule mg 07/26/24 Allergies Allergies Allergy/AdvReac Type Severity Reaction Status Date / Time No Known Drug Allergies Allergy Verified 07/26/24 02:11 PFS Medical History Medical History (Updated 07/26/24 @ 11:41 by Sierra Koroma MD) Parkinson disease Surgical History Surgical History (Updated 07/26/24 @ 00:18 by Maryuri Stapleton RN) S/P deep brain stimulator placement Social History Social History (Updated 07/26/24 @ 00:18 by Maryuri Stapleton RN) Smoking Status: Former smoker Do you vape?: No Relationship: Level: Assisted Home Mobility Equipment: Walker Do you feel safe in your home environment?: Yes Suffered physical, verbal, emotional, or financial abuse?: No History of Abuse: No Review of Systems Constitutional Reports: Fatigue, Fever, Chills, Malaise and Weakness; Denies: Diaphoresis, Night sweats or Changes in appetite or eating habits Eyes Denies: Pain, Irritation, Blurry vision, Floaters, Field loss or Vision loss Ears, nose, mouth, and throat Reports: Nasal congestion; Denies: Ear pain, Ear discharge, Hearing loss, Post nasal drip, Nasal obstruction, Vertigo, Throat pain, Neck pain or Throat swelling Cardiovascular Reports: shortness of breath with exertion; Denies: Irregular heart rate, chest pain, palpitations, edema, Syncope or lightheadedness Respiratory Reports: Shortness of breath, Cough, Sputum production and Change in phlegm color; Denies: Wheezing, Apnea or Snoring Gastrointestinal Denies: Abdominal pain, Nausea, Vomiting, Poor appetite, Coffee grounds in vomit, Heartburn or Diarrhea Genitourinary Denies: Painful urination, Flank pain, Incontinence, Urinary frequency or Urinary urgency Musculoskeletal Reports: Stiffness (chronic due to Parkinsons'); Denies: Back pain, Neck pain, Extremity pain or Extremity swelling Integumentary/Breast Denies: Rash, Itching, Dryness, Redness, Skin pain, Skin tenderness or Skin swelling Neurological Reports: Headache, General weakness and Lack of coordination; Denies: Focal weakness, Weakness in extremities or Vertigo Psychiatric Reports: Depression; Denies: Anxiety, Mood swings, Panic attacks, Change in sleep pattern or Hopelessness Endocrine Reports: Fatigue; Denies: Excessive urination, Excessive thirst, Polyphagia or Cold intolerance Hematologic/Lymphatic Denies: Anemia, Easy bruising or Petechiae Allergic/Immunologic Denies: Hives, Throat swelling, Tongue swelling, Facial swelling or Wheezing Prior Level of Functionality: Ambulated independently. Occasionally uses walker. Lives with . Exam Constitutional abnormal general appearance (frail appearing), no apparent distress, average body habitus and alert HENMT normocephalic, head/scalp atraumatic, hearing grossly normal bilaterally and oropharynx normal Eyes PERRL and EOMs intact bilaterally Neck/C-Spine visual inspection normal and trachea midline Lymph no lymphedema noted Chest inspection of chest normal and palpation of chest normal Respiratory breath sounds equal bilaterally, auscultation abnormal, no wheezes, rales noted (throughout) and no use of accessory muscles Cardiovascular normal heart rate noted, regular rhythm noted, no gallop, no rub and no murmur Gastrointestinal abdomen normal to inspection, abdomen soft to palpation, nondistended and normoactive bowel sounds Genitourinary no CVA tenderness Back/Pelvis spine normal to inspection Extremities normal to inspection, normal to palpation, no tenderness and full ROM Neurology no focal motor deficit noted Psychiatry mental status grossly normal, oriented x3, thought process normal, cooperative and affect normal Skin no rash, no lesions and no ecchymosis noted Conclusion/Plan Problem List (1) Acute hypoxic respiratory failure: Plan: Patient presents with 3 days of cough, shortness of breath, weakness, fevers and chills. Chest x-ray showed a left lung base opacity. Respiratory viral panel was positive for RSV. Has been requiring about 2 L to maintain oxygen sats between 90 to 92%. No history of any lung disease. Continue Rocephin azithromycin for possible superimposed community-acquired pneumonia on top of the RSV. Continue supportive care with albuterol as needed, lozenges, vitamin C. (2) RSV infection: Plan: Continue supportive therapy as outlined above. Continue to wean oxygen as tolerated. Qualifiers: RSV infection type: pneumonia Qualified Code(s): J12.1 - Respiratory syncytial virus pneumonia (3) Pneumonia: Plan: Continue Rocephin and azithromycin. Continue to wean oxygen as tolerated. Qualifiers: Pneumonia type: due to unspecified organism Laterality: left Lung location: lower lobe of lung Qualified Code(s): J18.9 - Pneumonia, unspecified organism (4) Dementia associated with Parkinson's disease: Plan: Patient is ambulatory at baseline. does help with his activities of daily living. Continue home medications including Zyprexa, pramipexole, Sinemet, Depakote, Lamictal. (5) Depression: Plan: Continue home medications including Zyprexa, pramipexole, Lamictal. Qualifiers: Depression Type: other depression Qualified Code(s): F32.89 - Other specified depressive episodes Lab Results Lab results reviewed: Yes 07/26/24 05:17 07/26/24 05:17 Diagnostic Imaging Results Diagnostic Imaging Results: positive Final report reviewed
[2024-07-26] MEDS: cefTRIAXone 1 GM in SODIUM CHLORIDE 0.9% MINIBAG 100 ML IV SCH (10:05)
[2024-07-26 10:51] LABS: ESTIMATED AVERAGE GLUCOSE 97 mg/dL (70-100)
--- NOTE | 2024-07-26 17:51 | PHARMACY PROGRESS NOTE ---
Best Possible Medication History Admit Date and Time: 07/26/24 113535 Home Medications Medication Instructions Recorded Confirmed Type divalproex 500 mg tablet,extended 1,000 mg (2 x 500 mg) PO QPM ##60 09/29/21 07/26/24 Rx release 24 hr (Depakote ER) aspirin 81 mg tablet,delayed 81 mg PO DAILY 12/02/21 07/26/24 History release calcium carbonate 600 mg PO QPM 12/02/21 07/26/24 History carbidopa ER 50 mg-levodopa 200 mg 1.5 tab PO 1600,2000 12/02/21 07/26/24 History tablet,extended release carbidopa ER 50 mg-levodopa 200 mg 3 tab PO 0800,1200 12/02/21 07/26/24 History tablet,extended release cholecalciferol (vitamin D3) 50 50 mcg PO QPM 12/02/21 07/26/24 History mcg (2,000 unit) capsule gabapentin 100 mg capsule 100 mg PO 0800,1600 PRN Pain 12/02/21 07/26/24 History lamotrigine 100 mg tablet 100 mg PO DAILY 12/02/21 07/26/24 History sennosides 8.6 mg-docusate sodium 1 tab PO QPM 12/02/21 07/26/24 History 50 mg tablet oxycodone-acetaminophen 5 mg-325 1 - 2 tab PO Q6H PRN pain #14 tabs 05/15/24 07/26/24 Rx mg tablet (Percocet) buspirone 10 mg tablet 10 mg PO 0800,1600 07/26/24 07/26/24 History hydroxyzine HCl 50 mg tablet 50 mg PO QPM 07/26/24 07/26/24 History lithium carbonate 150 mg capsule 150 mg PO QPM 07/26/24 07/26/24 History lithium carbonate 300 mg capsule 300 mg PO QPM 07/26/24 07/26/24 History olanzapine 10 mg tablet 15 mg PO QPM 07/26/24 07/26/24 History Processed by: Pharmacy Medications reviewed in ED?: No Medication History completed: Yes Patient Interview: Pt unable to participate (Pt could not remember medications, deferred to his ) Secondary Source(s): Spouse/Significant other ( interviewed over phone by pharmacy operations specialistPeter), Insurance records and Previous admit records [facility] Statement: As the person ultimately responsible for medication therapy, providers are able to order a medication from an existing home medication list in [facility] via the "Reconcile Routine" prior to Confirmation of that medication by product support specialist. Such practice is discouraged except when the physician, in their clinical judgment, deems that a medical need exists for a medication without regard to previous use.
[2024-07-26] MEDS ORDERED: SENNOSIDES DOCUSATE SODIUM PO SCH (21:00)
[2024-07-26] MEDS ORDERED: CHOLECALCIFEROL 50 MCG PO SCH (21:00)
[2024-07-26] MEDS ORDERED: CALCIUM CARBONATE 600 MG PO SCH (21:00)
[2024-07-26] MEDS: DIVALPROEX ER 250 MG TABLET PO SCH (21:15)
[2024-07-26] MEDS: OLANZapine ODT 5 MG TABLET TL SCH (21:16)
[2024-07-26] MEDS: RAPAFLO 8 MG PO SCH (21:21)
[2024-07-26] MEDS: NUPLAZID PO SCH (21:21)
[2024-07-26 22:19] VITALS: O2SAT 93
[2024-07-27 00:19] LABS: ALBUMIN/GLOBULIN RATIO 1.6 (1.0-2.2); TOTAL PROTEIN 6.7 g/dL (6.4-8.9)
[2024-07-27 06:02] LABS: BASOPHILS % (AUTO) 0.1 %; EOSINOPHILS % (AUTO) 0.1 %; HCT - HEMATOCRIT 41.4 % (42.0-52.0); HGB - HEMOGLOBIN 13.7 g/dL (14.0-18.0); LYMPHOCYTES % (AUTO) 14.9 %; MEAN CORPUSCULAR HEMOGLOBIN 32.6 pg (27.0-31.0); MEAN CORPUSCULAR HGB CONC 33.1 g/dL (32.0-36.0); MEAN CORPUSCULAR VOLUME 98.6 fL (80.0-94.0); MEAN PLATELET VOLUME 9.5 fL (7.4-11.4); MONOCYTES # (AUTO) 0.9 10^3/uL (0.0-1.0); MONOCYTES % (AUTO) 13.9 %; NEUTROPHILS # (AUTO) 4.8 10^3/uL (1.5-6.6); NEUTROPHILS % (AUTO) 70.7 %; PLT - PLATELET COUNT 168 10^3/uL (130-450); WHITE BLOOD COUNT 6.8 x10^3/uL (4.8-10.8)
[2024-07-27 06:12] LABS: MAGNESIUM 1.9 mg/dL (1.7-2.3)
[2024-07-27 06:18] LABS: ALBUMIN 3.9 g/dL (3.2-5.5); ALBUMIN/GLOBULIN RATIO 1.6 (1.0-2.2); BILIRUBIN,TOTAL 0.4 mg/dL (0.2-1.0); CALCIUM 9.2 mg/dL (8.5-10.3); CREATININE 0.8 mg/dL (0.6-1.3); POTASSIUM 4.2 mmol/L (3.5-4.5); TOTAL PROTEIN 6.3 g/dL (6.4-8.9)
[2024-07-27 08:13] VITALS: BP 141/81; TEMP 99.5
[2024-07-27] MEDS: CARBIDOPA/LEVODOPA ER 50 MG/200 MG TABLET PO SCH (08:14)
[2024-07-27] MEDS ORDERED: IBUPROFEN 400 MG TABLET PO PRN (09:59)
[2024-07-27] MEDS: GABAPENTIN 100 MG CAPSULE PO PRN (10:16)
--- NOTE | 2024-07-27 11:21 | PROVIDER PROGRESS NOTE ---
Current Medications Current Medications Current Medications: Current Medications Generic Name Dose Route Start Last Admin Trade Name Freq PRN Reason Stop Dose Admin Acetaminophen 650 mg 07/26/24 05:58 07/27/24 05:27 Acetaminophen 325 Mg Tablet PO 650 mg Q6H PRN Administration pain, fever Albuterol 2 puffs 07/26/24 05:58 Albuterol 1 Puff INH Q2H PRN sob Ascorbic Acid 500 mg 07/26/24 09:00 07/27/24 08:11 Ascorbic Acid 500 Mg Tablet PO 500 mg DAILY DERREK Administration Aspirin 81 mg 07/26/24 09:00 07/27/24 08:11 Aspirin Ec 81 Mg Tablet PO 81 mg DAILY DERREK Administration Atorvastatin Calcium 40 mg 07/26/24 09:00 07/27/24 08:11 Atorvastatin 40 Mg Tablet PO 40 mg DAILY DERREK Administration Benzonatate 100 mg 07/26/24 05:58 Benzonatate 100 Mg Capsule PO TID PRN Cough Carbidopa/Levodopa 3 tab 07/26/24 17:45 07/27/24 08:14 Carbidopa/Levodopa Er 50 Mg/200 Mg Tablet PO 3 tab 0800,1200 DERREK Administration Carbidopa/Levodopa 1.5 tab 07/26/24 17:46 07/26/24 19:54 Carbidopa/Levodopa Er 50 Mg/200 Mg Tablet PO 1.5 tab 1600,2000 DERREK Administration Divalproex Sodium 1,000 mg 07/26/24 21:00 07/26/24 21:15 Divalproex Er 250 Mg Tablet PO 1,000 mg QPM DERREK Administration Gabapentin 100 mg 07/26/24 05:56 07/27/24 10:16 Gabapentin 100 Mg Capsule PO 100 mg 1200,2100 PRN Administration Pain Guaifenesin 600 mg 07/26/24 09:00 07/27/24 08:10 Guaifenesin 600 Mg Tablet PO 600 mg BID DERREK Administration Ceftriaxone Sodium 1 gm/ 100 mls @ 200 mls/hr 07/26/24 09:00 07/27/24 11:10 Sodium Chloride IV 07/29/24 09:29 Infused DAILY DERREK Infusion Ibuprofen 400 mg 07/27/24 09:59 Ibuprofen 400 Mg Tablet PO Q6HR PRN Moderate Pain (Level 4-6) Lactobacillus Rhamnosus 1 cap 07/26/24 09:00 07/27/24 08:11 Lactobacillus Rhamnosus Gg Capsule PO 1 cap DAILY DERREK Administration Lamotrigine 100 mg 07/26/24 09:00 07/27/24 08:11 Lamotrigine 100 Mg Tablet PO 100 mg BID DERREK Administration Melatonin 3 mg 07/26/24 05:58 Melatonin 3 Mg Tablet PO QPM PRN sleep Multivitamins/Minerals 1 tab 07/26/24 08:00 07/27/24 08:10 Multivitamin W/Minerals Tablet PO 1 tab DAILYWM DERREK Administration Olanzapine 10 mg 07/26/24 21:00 07/26/24 21:16 Olanzapine Odt 5 Mg Tablet TL 10 mg QPM DERREK Administration Ondansetron HCl 4 mg 07/26/24 05:58 Ondansetron 4 Mg/2 Ml Vial IVP Q8H PRN Nausea / Vomiting Oxycodone HCl 5 mg 07/26/24 05:58 Oxycodone 5 Mg Tablet PO Q4H PRN moderate to severe pain Pantoprazole Sodium 40 mg 07/26/24 07:00 07/27/24 06:56 Pantoprazole 40 Mg Tablet PO 40 mg QDAC DERREK Administration Patient Own Med ( 1 each 07/26/24 21:00 07/26/24 21:21 Nuplazid) PO Not Given QPM DERREK Patient Own Med ( 1 each 07/26/24 21:00 07/26/24 21:21 Rapaflo 8mg) PO Not Given QPM [facility] Pramipexole Dihydrochloride 1 mg 07/26/24 09:00 07/27/24 08:11 Pramipexole 0.25 Mg Tablet PO 1 mg QID DERREK Administration Solifenacin 10 mg 07/26/24 09:00 07/27/24 08:11 Solifenacin Succinate 5 Mg Tablet PO 10 mg DAILY [facility] Administration Throat Lozenges 1 lozenge 07/26/24 05:58 Benzocaine/Menthol Lozenge MM Q2HR PRN Mouth Sore Pain Objective Vital Signs/Intake & Output Vital Signs: Vital Signs x48h Temp Pulse Resp BP Pulse Ox O2 Flow Rate 07/27/24 10:07 1 07/27/24 08:12 99.5 F 80 20 141/81 H 93 07/27/24 05:57 100.8 F H 84 18 140/69 H 93 Intake & Output: Intake & Output 01/28/07/25/24 07/26/24 07/27/24 23:59 23:59 23:59 23:59 Intake Total 2140 / 2140 600 / 600 Output Total 1450 / 1450 1050 / 1050 Balance 690 / 690 -450 / -450 Weight (kg) 67 kg Lab Results 07/27/24 05:23 07/27/24 05:23 Other Labs: Lab Results x24hrs 07/27/24 07/26/24 Range/Units 05:23 00:26 WBC 6.8 (4.8-10.8) x10^3/uL RBC 4.20 L (4.70-6.10) 10^6/uL Hgb 13.7 L (14.0-18.0) g/dL Hct 41.4 L (42.0-52.0) % MCV 98.6 H (80.0-94.0) fL MCH 32.6 H (27.0-31.0) pg MCHC 33.1 (32.0-36.0) g/dL RDW 13.0 (12.0-15.0) % Plt Count 168 (130-450) 10^3/uL MPV 9.5 (7.4-11.4) fL Neut # (Auto) 4.8 (1.5-6.6) 10^3/uL Lymph # (Auto) 1.0 L (1.5-3.5) 10^3/uL [place] # (Auto) 0.9 (0.0-1.0) 10^3/uL Eos # (Auto) 0.0 (0.0-0.7) 10^3/uL Baso # (Auto) 0.0 (0.0-0.1) 10^3/uL Absolute Nucleated RBC 0.00 x10^3/uL Nucleated RBC % 0.0 /100WBC Sodium 136 (135-145) mmol/L Potassium 4.2 (3.5-4.5) mmol/L Chloride 104 (101-111) mmol/L Carbon Dioxide 26 (21-32) mmol/L Anion Gap 6.0 (6-13) BUN 14 (6-20) mg/dL Creatinine 0.8 (0.6-1.3) mg/dL Estimated GFR (MDRD) 95 (>89) Glucose 100 (74-104) mg/dL Calcium 9.2 (8.5-10.3) mg/dL Magnesium 1.9 (1.7-2.3) mg/dL Total Bilirubin 0.4 (0.2-1.0) mg/dL AST 21 (10-42) IU/L ALT 3 L (10-60) IU/L Alkaline Phosphatase 51 (42-121) IU/L Total Protein 6.3 L 6.7 (6.4-8.9) g/dL Albumin 3.9 (3.2-5.5) g/dL Globulin 2.4 2.6 (2.1-4.2) g/dL Albumin/Globulin Ratio 1.6 1.6 (1.0-2.2) Assessment/Plan Problem List (1) Acute hypoxic respiratory failure: (2) RSV infection: Qualifiers: RSV infection type: pneumonia Qualified Code(s): J12.1 - Respiratory syncytial virus pneumonia (3) Pneumonia: Qualifiers: Laterality: left Lung location: lower lobe of lung Pneumonia type: due to unspecified organism Qualified Code(s): J18.9 - Pneumonia, unspecified organism (4) Dementia associated with Parkinson's disease: (5) Depression: Qualifiers: Depression Type: other depression Qualified Code(s): F32.89 - Other specified depressive episodes
--- NOTE | 2024-07-27 13:04 | PT Plan of Care ---
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 Shuffling gait pattern consistent with PD diagnosis, difficulty with dual task walking (stoping while talking). Verbal cueing required to maintain appropriate distance from walker (standing too close). Assessment Assessment Pt is a 74yo M referred for PT eval d/t RSV with limited mobility. Pt has PD with DBS implanted and is reportedly Nany at baseline with supervision and cane or walker. He lives with his (primary caregiver) in single level home with 0 OSCAR. Upon PT eval, pt is on RA, sats 91-92% at rest and with activity. CGA for bed mobility, minAx1 for transfers and min to modA for short distance amb with FWW to b/s chair (<5 '). Amb with shuffling gait pattern and difficulty with turning. Pt has coughing fit and is too fatigued to progress mobility at this time. Given severity of impairments and continued respiratory symptoms, pt will benefit from skilled PT in acute setting to improve mobility and safety. When medically clear, PT rec dc to SNF for further rehab. Goals Improve bed mobility to: Standby Assist Improve supine to sit to: Standby Assist Improve sit to stand to: Contact Guard Improve pivot transfer ability Contact Guard to: Improve sit to supine to: Contact Guard Improve gait ability to: Min A Assistive Device Used: Front Wheeled Walker Improve Sitting Balance to: Good Improve Standing Balance to: Good PT Plan of Care Frequency 1-2x/day Duration Until goals are met Discharge Recommendations Discharge Location Custodial Facility Other Owns FWW Transport Needs at Discharge [facility] Other BLS d/t isolation precautions. otherwise [facility] van is appropriate as pt is able to transfer with FWW and modA
--- NOTE | 2024-07-27 13:24 | OT Plan of Care ---
OT Plan of Care OT Plan of Care: Diagnosis Diagnosis RSV Diagnosis PD, dementia Chief Complaint cough, weakness, feeling "cold" Onset of Chief Complaint PATHOLOGY SECRETARY/TRANSCRIPTIONIST Surgical History (Updated 07/26/24 @ 00:18 by Maryuri Stapleton RN) S/P deep brain stimulator placement Medical History (Updated 07/26/24 @ 11:41 by Sierra Koroma MD) Parkinson disease Assessment Assessment Pt is a 74 y/o male adm with RSV requiring antibiotics and respiratory support. Baseline Parkinson's disorder. Met supine in bed on RA - VSS with mobility. A&O to self and place only - date and situation with cues. Follows all commands with increased time. Performed supine to sit MOD A, sit to stand MIN A, and ambulation 5ft bed to chair MIN-MOD A using RW - cues for safety and technique. Currently MIN A UB, MOD A LB ADL with full set up and increased time. Overall presents with decreased endurance, activity tolerance, and ADL status. Will benefit from cont OT services during acute stay. Rec d/ c to SNF at this time. Goals - Activities of Daily Living Improve Upper Extremity Modified Independent Dressing to: Improve Lower Extremity Modified Independent Dressing to: Improve Grooming/Hygiene to: Modified Independent Improve Bathing to: Modified Independent Improve Toileting to: Modified Independent Plan Treatment Frequency 1x/day Duration Until discharge -Discharge Recommendations Discharge Location Shelter Facility Support/Services Needed With assist Recommended Equipment Grab bars,Shower/bath chair Transport Needs at Discharge [facility]
--- NOTE | 2024-07-27 13:53 | Discharge Summary ---
"Discharge Summary Admit Date: 07/26/24 Discharge Date: 07/27/24 Discharging Provider: Dr. Sierra Koroma Primary Care Provider: Aide Moreau Code Status: Attempt Resuscitation Discharge Facility Name: Home with Home Health DIAGNOSES Admission Diagnoses: Acute hypoxic respiratory failure RSV infection Pneumonia Dementia associated with Parkinson's disease Depression, bipolar disorder Discharge Diagnoses with Status of Each Condition: Acute hypoxic respiratory failureresolved. Patient is now breathing comfortably on room air. Oxygen desaturation study indicated no oxygen needs. Completed 3 courses of Rocephin, as well as azithromycin. Will send him home on 2 more days of Augmentin. Advised to get plenty of rest, adequate hydration, good nutrition. RSV infectionsupportive treatment as above. Pneumoniacompleted 3 days of Rocephin azithromycin. 2 more days of Augmentin sent to pharmacy. Dementia associated with Parkinson's disease, bipolar disorderadvised to speak with his neurologist as there are they have questions about his medications and the doses he should be on. States that they have very good communication with her. Will call her with further questions. Also have an appointment in 2 weeks with her as well. HPI History of Present Illness: Patient is a 74-year-old male with a history of Parkinson's disease, dementia, who presented for 3 to 4 days of worsening cough, fevers, chills. His is at bedside and corroborates his history. He states that he has been feeling progressively worse. About 3 days ago, he was eating some granola, and may have aspirated which led to some coughing. This coughing worsened. has not had any symptoms. He has also been having some fevers and chills at home. He does not usually use oxygen at home. He has no history of lung disease including COPD or asthma. In the ER, he was desaturating down to 90%, and required 2 L of oxygen. He did spike a fever this morning of 100.8. His heart rate is between 80-90, and his blood pressure is normotensive. They did a respiratory viral panel which was positive for RSV. Chest x-ray shows a left lower lobe lung opacity. He was admitted for further management. CONSULTS | PROCEDURES Consultations: Physical therapy, Occupational Therapy, respiratory therapy, social work Procedures: Chest x-ray HOSPITAL COURSE Hospital Course: Patient is a 74-year-old male with a history of Parkinson's disease, bipolar disorder who presented with 3 to 4 days of worsening cough, fevers, chills, malaise. Respiratory viral panel was positive for RSV. Chest x-ray was done which showed a left lower lobe lung opacity. He was given some IV fluids. He was also given Rocephin azithromycin, which he completed 3 days of. He was requiring 2 to 3 L initially, which was weaned down to room air. Oxygen desaturation study was done which indicated that he did not need any oxygen support. Physical therapy and Occupational Therapy did work with him, and they did recommend SNF. After discussion with , he has opted for home with home health care. Patient required 2 more days of oral antibiotics, I will send him on Augmentin twice daily for 2 more days. I have also advised the patient and his to speak with the neurologist about his medications, and appropriate dosing. They do have a follow-up appointment with her in 2 weeks. Overall, the patient was much improved from his admission. He was deemed stable for discharge home with home health. ALLERGIES Allergies Allergy/AdvReac Type Severity Reaction Status Date / Time No Known Drug Allergies Allergy Verified 07/26/24 02:11 MEDICATIONS Ambulatory Orders Medication Instructions Recorded Confirmed divalproex 500 mg tablet,extended 1,000 mg (2 x 500 mg) PO QPM ##60 09/29/21 07/26/24 release 24 hr (Depakote ER) aspirin 81 mg tablet,delayed 81 mg PO DAILY 12/02/21 07/26/24 release calcium carbonate 600 mg PO QPM 12/02/21 07/26/24 carbidopa ER 50 mg-levodopa 200 mg 1.5 tab PO 1600,2000 12/02/21 07/26/24 tablet,extended release carbidopa ER 50 mg-levodopa 200 mg 3 tab PO 0800,1200 12/02/21 07/26/24 tablet,extended release cholecalciferol (vitamin D3) 50 50 mcg PO QPM 12/02/21 07/26/24 mcg (2,000 unit) capsule gabapentin 100 mg capsule 100 mg PO 0800,1600 PRN Pain 12/02/21 07/26/24 lamotrigine 100 mg tablet 100 mg PO DAILY 12/02/21 07/26/24 sennosides 8.6 mg-docusate sodium 1 tab PO QPM 12/02/21 07/26/24 50 mg tablet oxycodone-acetaminophen 5 mg-325 1 - 2 tab PO Q6H PRN pain #14 tabs 05/15/24 07/26/24 mg tablet (Percocet) buspirone 10 mg tablet 10 mg PO 0800,1600 07/26/24 07/26/24 hydroxyzine HCl 50 mg tablet 50 mg PO QPM 07/26/24 07/26/24 amoxicillin 500 mg-potassium 1 tab PO BID 2 days #4 tabs 07/27/24 clavulanate 125 mg tablet (Augmentin) PHYSICAL EXAM AT DISCHARGE General Appearance: positive No acute distress, Alert and Anxious Eyes Bilateral: positive Normal inspection, PERRL and EOMI ENT: positive ENT inspection nml, Pharynx nml and No signs of dehydration Neck: positive Nml inspection, Thyroid nml and No JVD Respiratory: positive Chest non-tender and No respiratory distress; negative Wheezes, Rales or Rhonchi Cardiovascular: positive Regular rate & rhythm, No murmur and No gallop; negative Tachycardia, Bradycardia, Systolic murmur or Diastolic murmur Peripheral Pulses: positive 2+ Abdomen: positive Non-tender; negative Tenderness, Guarding, Rebound, Hepatomegaly or Splenomegaly Back: positive Nml inspection; negative CVA tenderness (R) or CVA tenderness (L) Skin: positive Color nml, No rash, Warm and Dry Extremities: positive Non-tender, No pedal edema and Other (Stiffness) Neurologic/Psychiatric: positive Oriented x3, Motor nml and Mood/affect nml LABS 07/27/24 05:23 07/27/24 05:23 DIAGNOSTIC IMAGING Diagnostic Imaging Results: Final report reviewed QUALITY (Female Hip Fx Only) Was patient sent home on osteoporosis medication?: No FOLLOW UP Follow Up: Follow up with neurologist. Follow up with primary care physician. TIME SPENT Time Spent in Discharge (Minutes): 40 Discharge Plan Discharge Patient Disposition: Home Health Service Condition: Fair Prescriptions: New amoxicillin-pot clavulanate [Augmentin] 500-125 mg tablet 1 tab PO BID 2 Days Qty: 4 0RF Continued divalproex [Depakote ER] 500 MG tablet extended release 24 hr 1,000 mg PO QPM Qty: 60 0RF carbidopa-levodopa 1 TAB tablet extended release 1.5 tab PO 1599,1999 Patient Comments: Per , patient take 1.5 tabs PO at 4pm and 8pm gabapentin 100 MG capsule 100 mg PO 0800,1600 PRN (Reason: Pain) lamotrigine 100 MG tablet 100 mg PO DAILY Patient Comments: take 1 tablet by mouth once daily carbidopa-levodopa 1 TAB tablet extended release 3 tab PO 0800,1200 sennosides-docusate sodium 1 EACH tablet 1 tab PO QPM aspirin 81 MG tablet,delayed release (DR/EC) 81 mg PO DAILY calcium carbonate 600 MG tablet 600 mg PO QPM cholecalciferol (vitamin D3) 50 MCG capsule 50 mcg PO QPM oxycodone-acetaminophen [Percocet] 5-325 mg tablet 1 - 2 tab PO Q6H MDD 6 PRN (Reason: pain) Qty: 14 0RF buspirone 10 mg tablet 10 mg PO 0800,1600 hydroxyzine HCl 50 mg tablet 50 mg PO QPM Patient Comments: TAKE 1 TABLET BY MOUTH AT BEDTIME Discontinued lithium carbonate 150 mg capsule 150 mg PO QPM Patient Comments: TAKE 1 CAPSULE BY MOUTH EVERY DAY WITH FOOD. TOTAL DAILY DOSE 450 MG lithium carbonate 300 mg capsule 300 mg PO QPM Patient Comments: TAKE 1 CAPSULE BY MOUTH DAILY WITH FOOD WITH 150MG CAPSULE FOR A TOTAL DAILY DOSE OF 450MG olanzapine 10 MG tablet 15 mg PO QPM Activity Restrictions: Activity as Tolerated Diet: Regular Health Concerns: You came in because you are having shortness of breath, fevers, chills, as well as weakness. Your testing indicated that you had respiratory synctial virus, also known as RSV. This is a viral infection, which responds to supportive care including adequate hydration, rest, etc. We also were concerned that you may have had a superimposed bacterial infection, a pneumonia. You completed a few days of IV antibiotics while you were here. I will be sending 2 more days of oral antibiotics to your pharmacy, the [facility] in [place]. You expressed some concern about your medications that you use for your Parkinson's disease and your bipolar disorder. I would call your neurologist and clarify the doses of your buspirone, Sinemet, Depakote, hydroxyzine, your Lamictal, as well as your lithium and your olanzapine. I understand that these may have been changed recently, and that you have a follow-up appointment with your neurologist, Dr. Fontenot in a few weeks. If there is any confusion about these medications, please call her office for further clarification. Will also send her a message about your visit here. We had her physical therapist work with you, and they [facility] for [facility]. You have opted for home health care. I have placed this order. Please make an appointment to follow-up with a neurologist, as well as your primary care provider. If you experience further shortness of breath, difficulty breathing, weakness, fevers, chills, please feel free to return to the hospital. We are glad you are feeling better, thank you for allowing us to take care of you. Print Language: Polish Patient Instructions: Virus Respiratory Syncytial, Pneumonia Dc Stand Alone Forms: PCP List"
== END 2024-07-27 16:50 | disposition home health service (06) | DRG 193 ==
LOC: ED 00:01 → MS3 07:29
PROVIDERS: ADMIT Student in an Organized Health Care Education/Training Program; ATTEND Student in an Organized Health Care Education/Training Program
DX: R53.1 Weakness; R51.9 Headache, unspecified; J18.9 Pneumonia, unspecified organism; Z87.891 Personal history of nicotine dependence; Z79.82 Long term (current) use of aspirin; Z20.818 Contact with and (suspected) exposure to other bacterial communicable diseases; J12.1 Respiratory syncytial virus pneumonia; Z96.82 Presence of neurostimulator; G20.A1 Parkinson's disease without dyskinesia, without mention of fluctuations; J96.01 Acute respiratory failure with hypoxia; F02.83 Dementia in other diseases classified elsewhere, unspecified severity, with mood disturbance; Z20.822 Contact with and (suspected) exposure to COVID-19; Z79.899 Other long term (current) drug therapy; R11.0 Nausea; Z20.828 Contact with and (suspected) exposure to other viral communicable diseases; F31.9 Bipolar disorder, unspecified; R09.02 Hypoxemia